=== PATIENT | female | born 1960 | race Caucasian/White ===

== ENCOUNTER → 2017-03-10 | Outpatient (CLI) | payer BC ==
--- NOTE | 2017-03-10 09:53 | MM ---
Reason for exam: screening (asymptomatic). Last mammogram was performed 1 year and 3 months ago. History: Patient is postmenopausal. Benign right US cyst aspiration ea add of the right breast, December 10, 2006. Benign right US cyst aspiration of the right breast, December 10, 2006. Took hormonal contraceptives for 6 years beginning at age 16. Physical Findings: A clinical breast exam by your physician is recommended on an annual basis and results should be correlated with mammographic findings. MG Screening Mammo w CAD Bilateral CC and MLO view(s) were taken. Prior study comparison: December 11, 2015, bilateral MG screening mammo w CAD. November 14, 2014, right breast MG work up mamm w CAD RT. The breast tissue is heterogeneously dense. This may lower the sensitivity of mammography. Finding: There are typically benign regional calcifications in both breasts. No significant changes in finding since December 11, 2015 and November 14, 2014. ASSESSMENT: Benign, BI-RAD 2 RECOMMENDATION: Routine screening mammogram of both breasts in 1 year.
== END | disposition home or self-care (01) ==
LOC: RADMAMWWP 07:09
PROVIDERS: ATTEND Obstetrics & Gynecology
DX: Z12.31 Encounter for screening mammogram for malignant neoplasm of breast (principal)

== ENCOUNTER → 2017-12-08 | Outpatient (CLI) | payer BC ==
[2017-12-08 07:49] LABS: Basophils % (A) 1 %; Eosinophils # (A) 0.1 k/uL (0-0.7); Eosinophils % (A) 2 %; HGB 13.3 gm/dL (11.4-16.0); Lymphocytes # (A) 1.4 k/uL (1.0-4.8); Lymphocytes % (A) 30 %; MCH 27.8 pg (25.0-35.0); MCHC 33.3 g/dL (31.0-37.0); MCV 83.5 fL (80.0-100.0); Mean Platelet Volume 7.2; Monocytes # (A) 0.4 k/uL (0-1.0); Monocytes % (A) 8 %; Neutrophils # (A) 2.5 k/uL (1.3-7.7); Neutrophils % (A) 55 %; Platelet Count 240 k/uL (150-450); RBC 4.79 m/uL (3.80-5.40); RDW 13.5 % (11.5-15.5); WBC 4.5 k/uL (3.8-10.6)
[2017-12-08 08:15] LABS: Albumin 4.3 g/dL (3.5-5.0); Calcium 9.8 mg/dL (8.4-10.2); Potassium 4.1 mmol/L (3.5-5.1); Total Bilirubin 0.4 mg/dL (0.2-1.3)
[2017-12-08 08:22] LABS: T4, Free (Free Thyroxine) 1.18 ng/dL (0.78-2.19)
[2017-12-08 16:14] LABS: Hemoglobin A1C 5.5 % (4.0-6.0)
== END | disposition home or self-care (01) ==
LOC: LABWHC1 07:27
PROVIDERS: ATTEND Internal Medicine Geriatric Medicine
DX: D64.9 Anemia, unspecified (principal); E78.00 Pure hypercholesterolemia, unspecified; R73.09 Other abnormal glucose; E78.01 Familial hypercholesterolemia; I49.1 Atrial premature depolarization
CPT/HCPCS: 36415; 80053; 80061; 83036; 83540; 83550; 83735; 84439; 84443; 85025

== ENCOUNTER → 2019-02-01 | Outpatient (CLI) | payer BC ==
--- NOTE | 2019-02-01 10:05 | BD ---
EXAMINATION TYPE: Axial Bone Density DATE OF EXAM: 02/01/2019 COMPARISON: 11/08/2010 CLINICAL HISTORY: osteoporosis Height: 5'5 4 Weight: 186 FRAX RISK QUESTIONS: Secondary Osteoporosis: RISK FACTORS HISTORY OF: Postmenopausal woman: y MEDICATIONS: Additional Medications: blood pressure Additional History: EXAM MEASUREMENTS: Bone mineral densitometry was performed using the [employer] System. Bone mineral density as measured about the Lumbar spine is: ----- L1-L4(G/cm2): 1.213 T Score Values are as follows: ----- L2: 0.2 ----- L3: 0.7 ----- L4: 0.2 ----- L1-L4: 0.3 Bone mineral density has: Decreased -12.2% since study of: 11/08/2010 Bone mineral density about the R hip (g/cm2): 0.807 Bone mineral density about the L hip (g/cm2): 0.890 T Score values are as follows: -----R Neck: -1.7 -----L Neck: -1.1 -----R Total: -0.6 -----L Total: -0.5 Bone mineral density has: Decreased -9.5% since study of: 11/08/2010 IMPRESSION: Osteopenia (T Score between -2.5 and -1). There is slightly increased risk of fracture and the patient may be considered for treatment. Re-Screen 2-5 years. NOTE: T-SCORE=SD OF THE YOUNG ADULT MEAN.
--- NOTE | 2019-02-01 14:02 | MM ---
Reason for exam: screening (asymptomatic). Last mammogram was performed 1 year and 11 months ago. History: Patient is postmenopausal. Benign right US cyst aspiration ea add of the right breast, December 10, 2006. Benign right US cyst aspiration of the right breast, December 10, 2006. Took hormonal contraceptives for 6 years beginning at age 16. Physical Findings: A clinical breast exam by your physician is recommended on an annual basis and results should be correlated with mammographic findings. MG Screening Mammo w CAD Bilateral CC and MLO view(s) were taken. Prior study comparison: March 10, 2017, bilateral MG screening mammo w CAD. December 11, 2015, bilateral MG screening mammo w CAD. The breast tissue is heterogeneously dense. This may lower the sensitivity of mammography. Benign appearing bilateral calcifications. No suspicious abnormality. No significant changes when compared with prior studies. ASSESSMENT: Benign, BI-RAD 2 RECOMMENDATION: Routine screening mammogram of both breasts in 1 year.
== END | disposition home or self-care (01) ==
LOC: RADMAMWWP 06:54
PROVIDERS: ATTEND Internal Medicine Geriatric Medicine
DX: Z12.31 Encounter for screening mammogram for malignant neoplasm of breast (principal); M85.80 Other specified disorders of bone density and structure, unspecified site
CPT/HCPCS: 77067; 77080

== ENCOUNTER 2019-02-07 08:06 | Day surgery (SDC) | payer BC ==
[2019-02-03 10:53] VITALS: BMI 29.8
[~2019-02-07 08:06] MED LIST: LACTATED RINGERS 1,000 ML IV SCH; LIDOCAINE 1% 20 ML VIAL (10MG/ML) FOR IV START INTRADERMA PRN
[2019-02-07 08:32] VITALS: TEMP 98.4
[2019-02-07] MEDS ORDERED: PROPOFOL 10 MG/ML 20 ML VIAL IV ONE (08:37)
[2019-02-07] MEDS ORDERED: LIDOCAINE 1% INJ 10MG/ML (20 ML MDV) ONE (08:37)
--- NOTE | 2019-02-07 08:42 | P.GSHP ---
History of Present Illness H&P Date: 02/07/19 Chief Complaint: Screening colonoscopy This is a 4-year-old female presents today for screening colonoscopy. Her last colonoscopy his prostate years ago. Past Medical History Past Medical History: Hypertension History of Any Multi-Drug Resistant Organisms: None Reported Past Surgical History: Hysterectomy, Tubal Ligation Additional Past Surgical History / Comment(s): COLONOSCOPY, HEMORROIDECTOMY Past Anesthesia/Blood Transfusion Reactions: Motion Sickness, Postoperative Nausea & Vomiting (PONV) Smoking Status: Never smoker - Past Family History Mother Family Medical History: No Reported History Medications and Allergies Home Medications Medication Instructions Recorded Confirmed Type Losartan/Hydrochlorothiazide 1 each PO DAILY 02/03/19 02/07/19 History [Losartan-Hctz 100-25 mg Tab] Travoprost [Travatan Z 0.004%] 1 drop BOTH EYES HS 02/03/19 02/07/19 History amLODIPine BESYLATE [Norvasc] 5 mg PO DAILY 02/03/19 02/07/19 History Allergies Allergy/AdvReac Type Severity Reaction Status Date / Time No Known Allergies Allergy Verified 02/07/19 08:29 Surgical - Exam Vital Signs Temp Pulse Resp BP Pulse Ox 98.4 F 91 18 149/81 96 02/07/19 08:31 02/07/19 08:31 02/07/19 08:31 02/07/19 08:31 02/07/19 08:31 - General well developed, well nourished, no distress - Eyes PERRL - ENT normal pinna - Neck no masses - Respiratory normal expansion - Cardiovascular Rhythm: regular - Abdomen Abdomen: soft, non tender Assessment and Plan Assessment: We'll perform screening colonoscopy.
--- NOTE | 2019-02-07 08:56 | P.OP ---
Date of Procedure: 02/07/19 Preoperative Diagnosis: Screening colonoscopy Postoperative Diagnosis: Mild diverticulosis Procedure(s) Performed: Colonoscopy Anesthesia: MAC Surgeon: Rafa Iniguez Pathology: none sent Condition: stable Disposition: PACU Description of Procedure: The patient's placed on the endoscopy table in the lateral position. She received IV sedation. Digital rectal exam was performed which revealed no abnormalities. The flexible colonoscope was then placed patient anus and passed throughout the entire colon. The ileocecal valve was visualized. The cecum, ascending and transverse colon appeared normal. In the descending; there is mild diverticular changes. Scope was then brought back the rectum and this appeared normal. Scope was withdrawn for patient.
[2019-02-07 09:41] VITALS: BP 137/85; PULSE 71; RESP 17
== END 2019-02-07 09:41 | disposition home or self-care (01) ==
LOC: ORWHC2ENDO 08:06
PROVIDERS: ATTEND Surgery
DX: Z12.11 Encounter for screening for malignant neoplasm of colon (principal); K57.30 Diverticulosis of large intestine without perforation or abscess without bleeding; I10 Essential (primary) hypertension; Z90.710 Acquired absence of both cervix and uterus; Z98.51 Tubal ligation status; Z79.899 Other long term (current) drug therapy
CPT/HCPCS: J2001; J2704; G0121

== ENCOUNTER → 2020-07-23 | Outpatient (CLI) | payer BC ==
--- NOTE | 2020-07-30 10:26 | MM ---
Reason for exam: screening (asymptomatic). Last mammogram was performed 1 year and 6 months ago. History: Patient is postmenopausal. Benign right US cyst aspiration ea add of the right breast, December 10, 2006. Benign right US cyst aspiration of the right breast, December 10, 2006. Took hormonal contraceptives for 6 years beginning at age 16. Physical Findings: A clinical breast exam by your physician is recommended on an annual basis and results should be correlated with mammographic findings. MG 3D Screening Mammo W/Cad Bilateral CC and MLO view(s) were taken. Prior study comparison: February 01, 2019, bilateral MG screening mammo w CAD. March 10, 2017, bilateral MG screening mammo w CAD. The breast tissue is heterogeneously dense. This may lower the sensitivity of mammography. Regional punctate calcifications are unchanged. No significant changes when compared with prior studies. ASSESSMENT: Benign, BI-RAD 2 RECOMMENDATION: Routine screening mammogram of both breasts in 1 year. Patient should continue monthly self breast exams. A negative report should not preclude additional follow up of suspicious palpable abnormalities.
== END | disposition home or self-care (01) ==
LOC: RADMAMWWP 16:07
PROVIDERS: ATTEND Obstetrics & Gynecology
DX: Z12.31 Encounter for screening mammogram for malignant neoplasm of breast (principal)
CPT/HCPCS: 77063; 77067

== ENCOUNTER → 2021-05-29 | Outpatient (CLI) | payer BC ==
[2021-05-29 09:07] LABS: HCT 41.4 % (34.0-46.0); HGB 13.9 gm/dL (11.4-16.0); MCH 30.3 pg (25.0-35.0); MCHC 33.6 g/dL (31.0-37.0); MCV 90.2 fL (80.0-100.0); Mean Platelet Volume 7.3; Platelet Count 333 k/uL (150-450); RBC 4.59 m/uL (3.80-5.40); RDW 13.3 % (11.5-15.5); WBC 6.6 k/uL (3.8-10.6)
[2021-05-29 09:15] LABS: Calcium 9.9 mg/dL (8.4-10.2); Potassium 3.4 mmol/L (3.5-5.1)
[2021-05-29 09:16] LABS: Partial Thromboplastin Time 23.9 sec (22.0-30.0); Prothrombin Time 10.3 sec (9.0-12.0)
[2021-05-29 09:24] LABS: Appearance,Urine Clear (Clear); Bacteria,Urine Rare /hpf; Bilirubin,Urine Negative (Negative); Blood,Urine Negative (Negative); Color,Urine Yellow; Glucose,Urine (UA) Negative (Negative); Hyaline Casts,Urine 3 /lpf (0-2); Ketones,Urine Negative (Negative); Leukocyte Esterase,Urine Small (Negative); Mucus,Urine Rare /hpf; Nitrite,Urine Positive (Negative); Protein,Urine Negative (Negative); RBC,Urine <1 /hpf (0-5); Specific Gravity,Urine 1.015 (1.001-1.035); Squamous Epithelial Cell,Urine <1 /hpf (0-4); Urobilinogen,Urine <2.0 mg/dL (<2.0); WBC,Urine 7 /hpf (0-5)
--- NOTE | 2021-05-29 09:56 | XR ---
EXAMINATION TYPE: XR chest 2V DATE OF EXAM: 05/29/2021 COMPARISON: NONE HISTORY: Shortness of breath TECHNIQUE: Frontal and lateral views of the chest are obtained. FINDINGS: Scattered senescent parenchymal changes noted. No evidence for infiltrate. No evidence for atelectasis. Heart size is stable. Mediastinal structures are stable and grossly unremarkable. No evidence for hilar prominence. Degenerative changes dorsal spine. IMPRESSION: 1. No evidence for acute pulmonary disease.
== END | disposition home or self-care (01) ==
LOC: LABPAT 08:08
PROVIDERS: ATTEND Orthopaedic Surgery Orthopaedic Surgery of the Spine
DX: Z01.812 Encounter for preprocedural laboratory examination (principal); R06.02 Shortness of breath
CPT/HCPCS: 36415; 71046; 80048; 81001; 85027; 85610; 85730; 87070

== ENCOUNTER 2021-06-05 12:26 | Inpatient (IN) | payer BC ==
[2021-05-30 09:33] VITALS: BMI 28.8
[~2021-06-05 12:26] MED LIST changes: -LACTATED RINGERS 1,000 ML IV SCH; +LIDOCAINE 1% (10MG/ML) FOR IV START INTRADERMA PRN; -LIDOCAINE 1% 20 ML VIAL (10MG/ML) FOR IV START INTRADERMA PRN; +ONDANSETRON 4 MG/2 ML VIAL IVP ONE; +ceFAZolin 1,000 MG in SODIUM CHLORIDE 0.9% IRRIGATIO 1,000 ML IRRIGATION PRN
[2021-06-05] MEDS ORDERED: LACTATED RINGERS 1,000 ML IV ONE ×2 (13:41→16:24)
[2021-06-05] MEDS ORDERED: LIDOCAINE 1% INJ 10MG/ML (20 ML MDV) ONE (14:54)
[2021-06-05] MEDS ORDERED: HYDROmorphone (PF) 1 MG/ML ONE (14:54)
[2021-06-05] MEDS ORDERED: HEPARIN SODIUM,PORCINE 10,000 UNIT/ML 1 ML VIAL ONE (14:54)
[2021-06-05] MEDS ORDERED: SUCCINYLCHOLINE CHLORIDE 100 MG/5 ML SYR IV ONE (14:54)
[2021-06-05] MEDS ORDERED: NEOSTIGMINE 1 MG/ML 10 ML VIAL ONE (14:54)
[2021-06-05] MEDS ORDERED: ROCURONIUM 10 MG/ML (5 ML VIAL) IV ONE (14:54)
[2021-06-05] MEDS ORDERED: GLYCOPYRROLATE 0.2 MG/ML 2 ML VIAL ONE (14:54)
[2021-06-05] MEDS ORDERED: fentaNYL (PF) 50 MCG/ML 2 ML AMP ONE (14:54)
[2021-06-05] MEDS ORDERED: PROPOFOL 10 MG/ML 20 ML VIAL IV ONE (14:54)
[2021-06-05] MEDS ORDERED: PHENYLEPHRINE-0.9% NACL SYG 1,000 MCG/10 ML SYRINGE ONE (14:54)
[2021-06-05] MEDS ORDERED: SODIUM CHLORIDE 0.9% IRRIG 1,000 ML BTL IRRIGATION ONE (14:54)
[2021-06-05] MEDS ORDERED: MIDAZOLAM 2 MG/2 ML VIAL ONE (14:54)
[2021-06-05] MEDS ORDERED: GELATIN SPONGE,ABSORB (LARGE) 1 EACH SPONGE TOPICAL ONE (15:43)
[2021-06-05] MEDS ORDERED: LIDOCAINE 0.5%-EPI 1:200,000 50 ML VIAL SQ ONE (15:43)
[2021-06-05] MEDS ORDERED: THROMBIN (BOVINE) 5,000 UNIT VIAL TOPICAL ONE (19:14)
[2021-06-05] MEDS ORDERED: diazePAM 5 MG TAB PO PRN (20:00)
[2021-06-05] MEDS ORDERED: HYDROmorphone 1 MG/ML 1 ML SYRINGE IVP PRN (20:00)
[2021-06-05] MEDS ORDERED: BENZOCAINE/MENTHOL LOZENG 1 EACH LOZENGE MUCOUS MEM PRN (20:00)
[2021-06-05] MEDS ORDERED: HYDROmorphone 0.5 MG/0.5 ML SYRINGE IVP PRN (20:00)
[2021-06-05] MEDS ORDERED: CYCLOBENZAPRINE 10 MG TAB PO PRN (20:01)
[2021-06-05] MEDS ORDERED: MAG HYDROX/AL HYDROX/SIMETH 30 ML CUP PO PRN (20:01)
[2021-06-05] MEDS ORDERED: SENNOSIDES-DOCUSATE SODIUM 1 EACH TAB PO PRN (20:01)
[2021-06-05] MEDS ORDERED: ONDANSETRON 4 MG/2 ML VIAL IVP PRN (20:01)
[2021-06-05] MEDS: HYDROmorphone 0.5 MG/0.5 ML SYRINGE IVP PRN ×2 (20:09→20:37)
--- NOTE | 2021-06-05 20:09 | P.OP ---
Date of Procedure: 06/05/21 Preoperative Diagnosis: Severe spinal stenosis L4 5 L5-S1, spondylolisthesis L4 5 L5-S1, low back pain, lower extremity radiculopathy, lower extremity weakness, spinal stenosis, degenerative disc disease Postoperative Diagnosis: Same Anesthesia: GETA Pathology: none sent Condition: stable Disposition: PACU Description of Procedure: DESCRIPTION OF PROCEDURE(S): BRIEF OPERATIVE NOTE Preoperative Diagnosis: Severe spinal stenosis L4 5 L5-S1, spondylolisthesis L4 5 L5-S1, low back pain, lower extremity radiculopathy, lower extremity weakness, spinal stenosis, degenerative disc disease Postoperative Diagnosis: Same Procedure: Laminectomy and decompression L4 5 L5-S1, with increased difficulties during this case increase time due to the severity of the listhesis and stenosis Computer CT navigation aided Minimally invasive Posterior lateral decompression and facet fusion L4 5 L5-S1 Minimally invasive Transforaminal lumbar interbody fusion for a 360 fusion L4 5 L5-S1 Discectomy for decompression L4 5 L5-S1 Placement of interbody graft L4 5 L5-S1 Use of computer navigation for fusionL4 5 L5-S1 Local autogenous bone grafting Aspiration of bone marrow from the vertebral body pedicleAt L4 on the right Use of bone graft extenders Surgeon: Dr. Cloud Cane Packer: Dany KLEIN who is present throughout the entire the case persistence during positioning, dissection, exposure, visualization, and all crucial elements of the case as well as closure. Anesthesia: General anesthesia per Dr. Liu Estimated blood loss: Approximately 400 mL Complications: None apparent Components implanted: K2M minimally invasive [place] pedicle screw system withscrews measuring 6.5 mm in diameter to rods one [place] interbody cage with 10 mL of osteo amp bio4 bone graft substitute and 30 mL of the BX bone boat fibers to supplement the local autogenous bone graft and bone marrow aspirate Disposition: To recovery room in good stable condition. OPERATIVE INDICATIONS The patient has had severe issues at their lower extremity in her lower back over the past several years with significant worsening over the past several months. Over the past few months the patient had increasing pain at their back and their lower extremities. The patient is having severe radicular symptoms at their lower extremity with weakness. The patient is having significant pain in their back. They are unable to obtain any comfort. We did aggressive conservative treatment with medications therapy and interventional pain management however thery were not having any relief. The patient also showed evidence of a listhesis with some dynamic instability, as well as severe stenosis at L4 5 and L5-S1. The patient has been through conservative treatment. We discussed various treatment options including surgery, and the patient wishes to proceed with surgery We discussed the risk, patient's alternatives and benefits of surgery including but not limited to, risk of bleeding risk of infection, risk of need for further surgery, risk of decreased, loss of motion, muscle function, malunion nonunion, hardware failure, nerve damage, paralysis, heart attack, blindness and . They understood issues with the current pandemic and the possibility of exposure. OPERATIVE SUMMARY After discussing all the risks, patient alternatives and benefits at length, the patient elected to proceed with surgical intervention, signed informed consent, and presented for their procedure. The patient was seen and examined in the preoperative holding area and the surgical site was marked. The patient was given antibiotics and brought to the operating room. The patient was sedated and intubated by anesthesia in standard fashion. The patient was positioned on to the operating room table in a prone position on the appropriate frame which was well-padded and well molded. We were careful to pad any bony prominences and pressure points. We were careful to maintain the patient's cervical spine and good neutral alignment and position throughout. The patient was prepped and draped in a normal standard fashion. An appropriate timeout and keystone protocol performed. We were able to proceed with the surgery. The local wound area was infiltrated with local anesthetic. Over the right iliac crest I was able to make small stab incisions and establish a guidepin screw fixation to the iliac crest 2. I was able place the computer referencing device over the guidepins to establish an appropriate reference point for the Ziem CT navigation. We then were able to place patient in an appropriate drape and do a navigation spin for visualization and 3-D reconstruction of the lumbar spine. I was able utilize C-arm guidance and navigation to establish appropriate position over the pedicles bilaterally at the appropriate levelsof L4 5 and S1 . With the appropriate levels confirmed was able to make small incisions over the appropriate pedicle sites bilaterally. Utilizing the computer navigation device I was able to establish bony landmarks at the right iliac crest for a bony reference point for the navigation device. I was able to establish a Jamshidi needle over the lateral aspect of the pedicle and advanced the trocar into the pedicle being careful not to breech superiorly inferiorly medially or laterally using computer navigation device. Position was confirmed regularly with AP and lateral images on C-arm and with the computer navigation device at the appropriate levels bilaterally. I was able to establish the trocar into the pedicle appropriately into the posterior aspect of the vertebral body bilaterally at the appropriate levels. This was done at each of the pedicle positions and each of the vertebrae. At the superior vertebraeof L4 on the right I was able to take approximately 25 mL of bone aspiration for use later in the case to supplement the allograft and autograft bone. I was able place the guidewire into the trocar and into the vertebral body appropriately under C-arm guidance. Dissection was taken down over the wire to the appropriate starting position for the screw placed. The appropriate length screw was chosen, threaded over the guidewire and screwed appropriately into the pedicle and vertebral body under C-arm guidance in excellent alignment and position with good bony purchase. This is done at each of the screw sites at the appropriate levels At L4 5 and S1.. With the screws intact I extended the incision to connect the screw hole sites on the most symptomatic side On the left. I dissected down to establish access over the pars and lamina to the base of the spinous process. I was able to expose the facet joint. The capsule the facet was taken down and showed some facet arthrosis at the joint. I was able to use a combination of curettes and Kerrison rongeurs and a high-speed drill to take down the facet joint and do a facetectomy. I was able get excellent foraminal decompression and central decompression with undermining across midline to perform a laminectomy centrally and contralaterally I was able get good central decompression. The ligamentum flavum was taken down to further decompress centrally and at bilateral neural foramen. The decompression and laminectomy at both of the levels particularly at L4 5 was extremely difficult due to the severe stenosis as well as her listhesis. It took extra time exposure and care during the procedure to perform laminectomy at each of the levels for appropriate decompression. I was able to expose the disc space and visualize the traversing nerve root. Note was made of some disc protrusion and disc herniation that was abutting the traversing nerve root at the level causing further compression of the nerve root. I was able to establish a annulotomy at the appropriate level protecting soft tissue and neural structures. Note was made of some disc desiccation at the disc. I performed a complete discectomy with accommodation of curettes and rasps and scrapers. I was able get good endplate preparation at the disc space. I sized for the appropriate size interbody spacer protecting the soft tissue and neural structures. The wound was copiously irrigated and suctioned dry. There is no evidence of any dural tear or leak. I was able to pack the disc space with local autogenous bone graft as well as a small amount of bone graft which was also placed into the interbody cage itself. Protecting the soft tissue structures and neural structures I was able place the interbody cage in good alignment and good position with good fit and fill at the interbody space. Position was confirmed with C-arm guidance.This was done first at L5-S1 and L4 5 Good hemostasis maintained. There is no evidence of any dural tear or leak. The wound was irrigated and suctioned dry. With the hardware intact, intraoperative C-arm imaging was again taken which showed good alignment and position of the hardware at the appropriate levels At L4 5 and S1. We were then able to measure, contour and place the rods and appropriate hardware bilaterally. I was able to place capcrews, tighten them down, and torque them with the torque screwdriver appropriately. With this intact I was able to place the local autogenous bone graft with additional bone graft enhancer as necessary into the posterior lateral gutters over the decorticated transverse processes and facet joints on the contralateral side. The remainder of the bone graft was placed over the facet joint on the contralateral side after taking down the facet joint capsule. With the bone graft intact, a stable construct, and good decompression at the appropriate levels, we were able to proceed with closure. Good hemostasis was maintained. There is no evidence of dural tear or leak. The fascia was closed for a watertight closure. he subcuticular tissue was closed with absorbable suture. The wound was cleaned and dried and dressed with the appropriate dressing. The drapes were broken down. The patient was gently rolled back onto their hospital bed being careful to maintain their cervical spine and good neutral alignment and position. They were woken up by anesthesia, extubated, and brought to the recovery room in good stable condition. The patient will be admitted to the hospital for appropriate postoperative care, medical management and monitoring. We will continue to follow them closely ab out the postoperative course.
[2021-06-05] MEDS: LATANOPROST 0.005% OPHTH DROPS 2.5 ML BTL BOTH EYES SCH (22:27)
[2021-06-05] MEDS ORDERED: DILTIAZEM 125 MG in SODIUM CHLORIDE 0.9% 100 ML IV SCH (22:30)
[2021-06-05 22:53] LABS: Glucose,Whole Blood 157 mg/dL (75-99)
[2021-06-06] MEDS: LACTATED RINGERS 1,000 ML IV SCH ×2 (00:15→16:44)
[2021-06-06] MEDS: METOPROLOL TARTRATE 25 MG TAB PO SCH ×3 (01:04→19:33)
[2021-06-06] MEDS: HYDROcodone/APAP 5-325MG 1 EACH TAB PO PRN ×3 (01:04→23:10)
[2021-06-06] MEDS: SODIUM CHLORIDE 0.9% 1,000 ML IV SCH ×3 (01:06→23:12)
[2021-06-06 01:25] LABS: Appearance,Urine Clear (Clear); Bilirubin,Urine Negative (Negative); Blood,Urine Negative (Negative); Color,Urine Yellow; Glucose,Urine (UA) Negative (Negative); Ketones,Urine Negative (Negative); Leukocyte Esterase,Urine Negative (Negative); Nitrite,Urine Negative (Negative); Protein,Urine Negative (Negative); Specific Gravity,Urine 1.016 (1.001-1.035); Urobilinogen,Urine <2.0 mg/dL (<2.0)
--- NOTE | 2021-06-06 07:26 | FL ---
EXAMINATION TYPE: FL guidance operating room, XR lumbar spine 2 or 3V DATE OF EXAM: 06/05/2021 CLINICAL HISTORY: Low back pain. TECHNIQUE: Fluoroscopy. Intraoperative 2 views lumbar spine. COMPARISON: None. FINDINGS: Fluoroscopic guidance was provided during lumbar fusion procedure performed by Dr. Cloud. A total of 17 seconds of fluoroscopic time was utilized during the procedure and 7 spot images was a cquired. Intraoperative images obtained show access and placement of bilateral posterior interpedicular rods a nd screws along with metallic disc material at L4-S1 levels. IMPRESSION: As Above.
[2021-06-06 07:44] LABS: Basophils % (A) 0 %; Eosinophils # (A) 0.1 k/uL (0-0.7); Eosinophils % (A) 1 %; HGB 11.5 gm/dL (11.4-16.0); Lymphocytes # (A) 0.8 k/uL (1.0-4.8); Lymphocytes % (A) 9 %; MCH 31.1 pg (25.0-35.0); MCHC 34.9 g/dL (31.0-37.0); MCV 89.1 fL (80.0-100.0); Mean Platelet Volume 7.1; Monocytes # (A) 0.6 k/uL (0-1.0); Monocytes % (A) 7 %; Neutrophils % (A) 81 %; Platelet Count 233 k/uL (150-450); RDW 13.2 % (11.5-15.5); WBC 8.7 k/uL (3.8-10.6)
[2021-06-06 08:08] LABS: ALT 13 U/L (4-34); AST 33 U/L (14-36); African American GFR (CKD) 77 (>60 ml/min/1.73 sqM); Albumin/Globulin Ratio 1.4; Alkaline Phosphatase 55 U/L (38-126); Anion Gap 4 mmol/L; Blood Urea Nitrogen 21 mg/dL (7-17); Calcium 8.7 mg/dL (8.4-10.2); Carbon Dioxide 27 mmol/L (22-30); Chloride 103 mmol/L (98-107); Globulin 2.1 g/dL; Glucose 108 mg/dL (74-99); Magnesium 2.1 mg/dL (1.6-2.3); Non-African American GFR(CKD) 67 (>60 ml/min/1.73 sqM); Potassium 4.2 mmol/L (3.5-5.1); Sodium 134 mmol/L (137-145); Total Bilirubin 0.5 mg/dL (0.2-1.3); Total Protein 5.1 g/dL (6.3-8.2)
[2021-06-06 08:24] LABS: T4, Free (Free Thyroxine) 1.39 ng/dL (0.78-2.19)
[2021-06-06] MEDS: hydroCHLOROthiazide 25 MG TAB PO SCH (08:57)
[2021-06-06] MEDS: CHOLECALCIFEROL 25 MCG (1000 IU) TABLET PO SCH (08:57)
[2021-06-06] MEDS: MULTIVITAMINS, THERA 1 EACH TAB PO SCH (08:57)
[2021-06-06] MEDS ORDERED: amLODIPine 5 MG TAB PO SCH (09:00)
[2021-06-06] MEDS ORDERED: POTASSIUM PO SCH (09:00)
[2021-06-06] MEDS ORDERED: MAGNESIUM PO SCH (09:00)
--- NOTE | 2021-06-06 12:17 | P.CRDCN ---
History of Present Illness Consult date: 06/06/21 History of present illness: HISTORY OF PRESENT ILLNESS: This is a 60-year-old female with a past medical history significant for hypertension. 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 We have been asked to see the patient in consultation for new-onset atrial fibrillation with RVR. Patient examined at the bedside. Patient underwent back surgery yesterday with Dr. Cloud. Postoperatively the patient went into A. fib with RVR. The patient states she was pretty groggy yesterday and does not remember much of the events that happened yesterday. She currently denies chest pain or pressure. She denies shortness of breath. She denies any palpitations. The patient was started on a Cardizem drip and converted to sinus mechanism within a couple hours. She remains in sinus mechanism this morning. Her Cardizem drip has been discontinued. EKG reveals atrial fibrillation with RVR. Telemetry reveals sinus mechanism Laboratory data: WBC 8.7. Hemoglobin 11.5. Platelet count 233. Sodium 134. Potassium 4.2. BUN 21. Creatinine 0.92. Magnesium 2.1. Current home cardiac medications include valsartan 160 mg daily, hydrochlorothiazide 25 mg daily, and Norvasc 5 mg daily REVIEW OF SYSTEMS: At the time of my exam: CONSTITUTIONAL: Denies fever or chills. HEENT: Denies blurred vision, vision changes, or eye pain. Denies hemoptysis CARDIOVASCULAR: Denies chest pain. Denies orthopnea. Denies PND. Denies palpitations RESPIRATORY: Denies shortness of breath. GASTROINTESTINAL: Denies abdominal pain. Denies nausea or vomiting. HEMATOLOGIC: Denies bleeding disorders. GENITOURINARY: Denies any blood in urine. SKIN: Denies pruitis. Denies rash. PHYSICAL EXAM: VITAL SIGNS: Reviewed. GENERAL: Well-developed in no acute distress. HEENT: Head is normocephalic. Pupils are equal, round. Sclerae anicteric. Mucous membranes of the mouth are moist. Neck supple. No JVD or thyromegaly LUNGS: Respirations even and unlabored. Lungs essentially clear to auscultation bilaterally. HEART: Regular rate and rhythm. S1 and S2 heard. ABDOMEN: Soft. Nondistended. Nontender. EXTREMITIES: Normal range of motion. No clubbing or cyanosis. Peripheral pulses intact. No lower extremity edema NEUROLOGIC: Awake and alert. Oriented x 3. ASSESSMENT: New-onset paroxysmal atrial fibrillation with RVR Chronic back pain with severe spinal stenosis, status post decompression and fusion Hypertension PLAN: Obtain 2-D echo to assess cardiac structure and function Check TSH Continue metoprolol 25mg BID Continue telemetry monitoring No anticoagulation recommended due to recent surgery and brief isolated episode of atrial fibrillation Further recommendations pending patient course Nurse practitioner note has been reviewed by physician. Signing provider agrees with the documented findings, assessment, and plan of care. Past Medical History Past Medical History: Hypertension, Osteoarthritis (OA) Additional Past Medical History / Comment(s): DDD, BULDGING DISCS, BACK PAIN- USING WALKER., TINNITUS, OCCULAR HTN History of Any Multi-Drug Resistant Organisms: None Reported Past Surgical History: Hysterectomy, Tubal Ligation Additional Past Surgical History / Comment(s): FOOT SURGERY (DR CANTU), HEMORRHOIDECTOMY, COLONOSCOPY Past Anesthesia/Blood Transfusion Reactions: Previous Problems w/ Anesthesia, Motion Sickness, Postoperative Nausea & Vomiting (PONV) Additional Past Anesthesia/Blood Transfusion Reaction / Comment(s): MOTHER = ponv Past Psychological History: No Psychological Hx Reported Smoking Status: Never smoker Past Alcohol Use History: None Reported Past Drug Use History: None Reported - Past Family History Brother(s) Additional Family Medical History / Comment(s): KIDNEY REMOVED-UNSURE REASON Mother Family Medical History: AICD/Pacemaker, Hypertension Medications and Allergies Home Medications Medication Instructions Recorded Confirmed Type amLODIPine BESYLATE [Norvasc] 5 mg PO DAILY 02/03/19 05/30/21 History Cholecalciferol [Vitamin D3 (25 50 mcg PO DAILY 05/30/21 05/30/21 History Mcg = 1000 Iu)] Cyclobenzaprine [Flexeril] 10 mg PO Q8HR 05/30/21 05/30/21 History HYDROcodone/APAP 5-325MG [[place] 1 tab PO TID PRN 05/30/21 05/30/21 History 5-325] Ibuprofen [Motrin] 800 mg PO Q8H PRN 05/30/21 05/30/21 History Latanoprost/Pf [Latanoprost 0.005% 1 drop BOTH EYES HS 05/30/21 06/05/21 History Eye Drop] Magnesium/Potassium 1 tab PO DAILY 05/30/21 06/05/21 History Mv-Min/Folic/Vit K/[id number] 1 each PO DAILY 05/30/21 05/30/21 History [Alive Women's 50 Plus Tablet] Osteosheath Calcium Supplement 1 tab PO DAILY 05/30/21 History Valsartan 160 mg PO DAILY 05/30/21 05/30/21 History Vitamin B Complex 1 each PO DAILY 05/30/21 05/30/21 History hydroCHLOROthiazide 25 mg PO DAILY 05/30/21 05/30/21 History Allergies Allergy/AdvReac Type Severity Reaction Status Date / Time BANDAIDES AdvReac Unknown Rash/Hives Uncoded 05/30/21 08:52 Physical Exam Vitals: Vital Signs Temp Pulse Pulse Resp BP BP Pulse Ox 06/05/21 23:12 97.8 F 99 16 104/68 99 06/05/21 22:27 128 H 06/05/21 22:25 112 H 117/69 98 06/05/21 22:05 99 110/57 98 06/05/21 22:00 128 H 06/05/21 21:50 130 H 110/72 99 06/05/21 21:35 97.5 F L 125 H 17 113/69 98 06/05/21 20:57 85 16 126/61 100 06/05/21 20:42 94 18 135/69 100 06/05/21 20:27 94 16 137/75 100 06/05/21 20:12 80 16 122/58 100 06/05/21 19:57 96.9 F L 87 16 119/67 98 06/05/21 13:30 98.1 F 110 H 18 113/66 97 Intake and Output 06/05/21 06/06/21 06/06/21 22:59 06:59 14:59 Intake Total 1401.5 Output Total 780 510 Balance 621.5 -510 Intake: IV 1401.5 Output: Urine 380 510 Estimated Blood Loss 400 Other: Voiding Method Indwelling Catheter Indwelling Catheter Weight 81 kg Results 06/06/21 06:48 06/06/21 06:48 Cardiac Enzymes 06/06/21 Range/Units 06:48 AST 33 (14-36) U/L CBC 06/06/21 Range/Units 06:48 WBC 8.7 (3.8-10.6) k/uL RBC 3.70 L (3.80-5.40) m/uL Hgb 11.5 (11.4-16.0) gm/dL Hct 33.0 L (34.0-46.0) % Plt Count 233 (150-450) k/uL Comprehensive Metabolic Panel 06/05/21 06/06/21 Range/Units 13:39 06:48 Sodium 134 L (137-145) mmol/L Potassium 4.4 4.2 (3.5-5.1) mmol/L Chloride 103 (98-107) mmol/L Carbon Dioxide 27 (22-30) mmol/L BUN 21 H (7-17) mg/dL Creatinine 0.92 (0.52-1.04) mg/dL Glucose 108 H (74-99) mg/dL Calcium 8.7 (8.4-10.2) mg/dL AST 33 (14-36) U/L ALT 13 (4-34) U/L Alkaline Phosphatase 55 (38-126) U/L Total Protein 5.1 L (6.3-8.2) g/dL Albumin 3.0 L (3.5-5.0) g/dL Current Medications Generic Name Dose Route Start Last Admin Trade Name Freq PRN Reason Stop Dose Admin Hydrocodone Bitart/Acetaminophen 1 each 06/05/21 20:00 06/06/21 01:04 Hydrocodone/Apap 5-325mg 1 Each Tab PO 07/05/21 20:01 1 each Q4HR PRN Administration Pain Al Hydroxide/Mg Hydroxide 30 ml 06/05/21 20:01 Mag Hydrox/Al Hydrox/Simeth 30 Ml Cup PO 07/05/21 20:02 Q4HR PRN Indigestion Benzocaine/Menthol 1 each 06/05/21 20:00 Benzocaine/Menthol Lozeng 1 Each Lozenge MUCOUS MEM 07/05/21 20:01 Q4HR PRN Sore Throat Cholecalciferol 50 mcg 06/06/21 09:00 Cholecalciferol 25 Mcg (1000 Iu) Tablet PO 07/06/21 09:01 DAILY CADEN Cyclobenzaprine HCl 10 mg 06/05/21 20:01 Cyclobenzaprine 10 Mg Tab PO 07/05/21 20:02 TID PRN Muscle Spasm Diazepam 5 mg 06/05/21 20:00 Diazepam 5 Mg Tab PO 07/05/21 20:01 QID PRN Anxiety Hydrochlorothiazide 25 mg 06/06/21 09:00 Hydrochlorothiazide 25 Mg Tab PO 07/06/21 09:01 DAILY CADEN Hydromorphone HCl 0.5 mg 06/05/21 20:00 Hydromorphone 0.5 Mg/0.5 Ml Syringe IVP 07/05/21 20:01 Q4HR PRN Pain Hydromorphone HCl 1 mg 06/05/21 20:00 Hydromorphone 1 Mg/Ml 1 Ml Syringe IVP 07/05/21 20:01 Q4HR PRN Pain Lactated Ringer's 1,000 mls @ 20 mls/hr 06/05/21 06:42 06/06/21 00:15 Lactated Ringers IV 07/05/21 06:43 Not Given .Q24H CADEN Sodium Chloride 1,000 mls @ 75 mls/hr 06/05/21 20:00 06/06/21 01:06 Saline 0.9% IV 07/05/21 20:01 75 mls/hr .[id number] CADEN Administration Cefazolin Sodium 2 gm/ Sodium 50 mls @ 100 mls/hr 06/06/21 00:00 06/06/21 01:05 Chloride IVPB 06/06/21 08:29 100 mls/hr Q8HR CADEN Administration Latanoprost 1 drops 06/05/21 21:00 06/05/21 22:27 Latanoprost 0.005% Ophth Drops 2.5 Ml Btl BOTH EYES 07/05/21 21:01 1 drops HS CADEN Administration Lidocaine HCl 0.1 ml 06/05/21 06:42 06/05/21 13:42 Lidocaine 1% (10mg/Ml) For Iv Start INTRADERMA 07/05/21 06:43 0.1 ml PER PROTOCOL PRN Administration IV Start Metoprolol Tartrate 25 mg 06/06/21 00:15 06/06/21 01:04 Metoprolol Tartrate 25 Mg Tab PO 25 mg BID CADEN Administration Multivitamins 1 each 06/06/21 09:00 Multivitamins, Thera 1 Each Tab PO 07/06/21 09:01 DAILY CADEN Ondansetron HCl 4 mg 06/05/21 20:01 Ondansetron 4 Mg/2 Ml Vial IVP 07/05/21 20:02 Q8HR PRN Nausea And Vomiting Senna/Docusate Sodium 2 each 06/05/21 20:01 Sennosides-Docusate Sodium 1 Each Tab PO 07/05/21 20:02 DAILY PRN Constipation Intake and Output 06/05/21 06/06/21 06/06/21 22:59 06:59 14:59 Intake Total 1401.5 Output Total 780 510 Balance 621.5 -510 Intake: IV 1401.5 Output: Urine 380 510 Estimated Blood Loss 400 Other: Voiding Method Indwelling Catheter Indwelling Catheter Weight 81 kg 06/06/21 06:48 06/06/21 06:48
--- NOTE | 2021-06-06 12:45 | P.CONS ---
History of Present Illness - Reason for Consult Consult date: 06/06/21 Medical management - History of Present Illness HISTORY OF PRESENT ILLNESS This is a 60-year-old female patient of Dr. Antunez with past medical history of hypertension, osteoarthritis, degenerative disc disease, tinnitus. Patient has been brought into the hospital on the care of Dr. Cluod status post laminectomy and decompression L4-5, L5-S1 secondary to severe spinal stenosis, spondylolisthesis, lower extremity radiculopathy and lower extremity weakness. Last evening, patient had intermittent rapid heart rate and reported to be in atrial fibrillation, transferred to the cardiac stepdown unit, started Lopressor 25 mg twice daily and amlodipine was discontinued, consult with cardiology nam zapien At the time of evaluation, patient is in a sinus rhythm and apparently converted when she arrived to the cardiac stepdown unit. Patient denies having any chest pain, shortness of breath. No nausea or vomiting. REVIEW OF SYSTEMS Constitutional: No fever, no chills, no night sweats. No weight change. No weakness, fatigue or lethargy. No daytime sleepiness. EENT: No headache. No blurred vision or double vision, no loss of vision. No loss of Hearing, no ringing in the ears, no dizziness. No nasal drainage or congestion. No epistaxis. No sore throat. Lungs: No shortness of breath, cough, no sputum production. No wheezing. Cardiovascular: No chest pain, no lower extremity edema. No palpitations. No paroxysmal nocturnal dyspnea. No orthopnea. No lightheadedness or dizziness. No syncopal episodes. Abdominal: No abdominal pain. No nausea, vomiting. No diarrhea. No constipation. No bloody or tarry stools.. No loss of appetite. Genitourinary: No dysuria, increased frequency, urgency. No urinary retention. Musculoskeletal: No myalgias. No muscle weakness, no gait dysfunction, no frequent falls. Reports back pain. No neck pain. Integumentary: No wounds, no lesions. No rash or pruritus. No unusual bruising. No change in hair or nails. Neurologic: No aphasia. No facial droop. No change in mentation. No head injury. No headache. No paralysis. No paresthesia. Psychiatric: No depression. No anxiety. No mood swings. Endocrine: No abnormal blood sugars. No weight change. SOCIAL HISTORY Patient is a lifelong nonsmoker, no alcohol use, marijuana use or illicit drug use. She is and lives at home with her . FAMILY HISTORY Mother at age 82 from a brain hemorrhage. Father at age 87 from old age. Patient has 2 brothers and one brother has history of atrial fibrillation status post cardiac ablation. Patient has a total of 4 sisters and one sisters had atrial fibrillation with cardiac ablation. Patient has 2 children with no major medical problems. PHYSICAL EXAMINATION Gen: This is a 60-year-old female. Patient is resting in recliner and appears to be comfortable and in no acute distress. HEENT: Head is atraumatic, normocephalic. Pupils equal, round. Sclerae is anicteric. NECK: Supple. No JVD. No lymphadenopathy. No thyromegaly. LUNGS: Clear to auscultation. No wheezes or rhonchi. No intercostal retract ions. HEART: Regular rate and rhythm. No murmur. ABDOMEN: Soft. Bowel sounds are present. No masses. No tenderness. EXTREMITIES: No pedal edema. No calf tenderness. NEUROLOGICAL: Patient is awake, alert and oriented x3. Cranial nerves 2 through 12 are grossly intact. ASSESSMENT AND PLAN 1. Severe spinal stenosis, spondylolisthesis, lower extremity radiculopathy and lower extremity weakness status post laminectomy and decompression, postoperative day #1. Continue current pain management, PT and OT, activity, continue incentive spirometry to reduce incidence of atelectasis and hospital- acquired pneumonia. 2. New onset A. fib with RVR, paroxysmal atrial fibrillation. Patient has converted to normal sinus rhythm, obtain TSH, continue metoprolol tartrate 5 mg twice daily, cardiology consult appreciated, echocardiogram ordered. 3. Hypertension. Continue hydrochlorothiazide 25 mg daily, Lopressor 25 mg twice daily. 4. Generalized osteoarthritis, stable. 5. GI prophylaxis. Protonix. 6. DVT prophylaxis. Early ambulation. DISCHARGE PLAN Home. Impression and plan of care have been directed as dictated by the signing andrea mccray. Milagro Romero nurse practitioner acting as scribe for signing physician. Past Medical History Past Medical History: Hypertension, Osteoarthritis (OA) Additional Past Medical History / Comment(s): DDD, BULDGING DISCS, BACK PAIN- USING WALKER., TINNITUS, OCCULAR HTN History of Any Multi-Drug Resistant Organisms: None Reported Past Surgical History: Hysterectomy, Tubal Ligation Additional Past Surgical History / Comment(s): FOOT SURGERY (DR CANTU), H EMORRHOIDECTOMY, COLONOSCOPY Past Anesthesia/Blood Transfusion Reactions: Previous Problems w/ Anesthesia, Motion Sickness, Postoperative Nausea & Vomiting (PONV) Additional Past Anesthesia/Blood Transfusion Reaction / Comm: MOTHER = ponv Past Psychological History: No Psychological Hx Reported Smoking Status: Never smoker Past Alcohol Use History: None Reported Past Drug Use History: None Reported - Past Family History Brother(s) Additional Family Medical History / Comment(s): KIDNEY REMOVED-UNSURE REASON Mother Family Medical History: AICD/Pacemaker, Hypertension Medications and Allergies Home Medications Medication Instructions Recorded Confirmed Type amLODIPine BESYLATE [Norvasc] 5 mg PO DAILY 02/03/19 05/30/21 History Cholecalciferol [Vitamin D3 (25 50 mcg PO DAILY 05/30/21 05/30/21 History Mcg = 1000 Iu)] Cyclobenzaprine [Flexeril] 10 mg PO Q8HR 05/30/21 05/30/21 History HYDROcodone/APAP 5-325MG [[place] 1 tab PO TID PRN 05/30/21 05/30/21 History 5-325] Ibuprofen [Motrin] 800 mg PO Q8H PRN 05/30/21 05/30/21 History Latanoprost/Pf [Latanoprost 0.005% 1 drop BOTH EYES HS 05/30/21 06/05/21 History Eye Drop] Magnesium/Potassium 1 tab PO DAILY 05/30/21 06/05/21 History Mv-Min/Folic/Vit K/[id number] 1 each PO DAILY 05/30/21 05/30/21 History [Alive Women's 50 Plus Tablet] Osteosheath Calcium Supplement 1 tab PO DAILY 05/30/21 History Valsartan 160 mg PO DAILY 05/30/21 05/30/21 History Vitamin B Complex 1 each PO DAILY 05/30/21 05/30/21 History hydroCHLOROthiazide 25 mg PO DAILY 05/30/21 05/30/21 History Allergies Allergy/AdvReac Type Severity Reaction Status Date / Time BANDAIDES AdvReac Unknown Rash/Hives Uncoded 05/30/21 08:52 Physical Exam Vitals: Vital Signs Temp Pulse Pulse Resp BP BP Pulse Ox 06/05/21 23:12 97.8 F 99 16 104/68 99 06/05/21 22:27 128 H 06/05/21 22:25 112 H 117/69 98 06/05/21 22:05 99 110/57 98 06/05/21 22:00 128 H 06/05/21 21:50 130 H 110/72 99 06/05/21 21:35 97.5 F L 125 H 17 113/69 98 06/05/21 20:57 85 16 126/61 100 06/05/21 20:42 94 18 135/69 100 06/05/21 20:27 94 16 137/75 100 06/05/21 20:12 80 16 122/58 100 06/05/21 19:57 96.9 F L 87 16 119/67 98 06/05/21 13:30 98.1 F 110 H 18 113/66 97 Intake and Output 06/05/21 06/06/21 06/06/21 22:59 06:59 14:59 Intake Total 1401.5 Output Total 780 510 Balance 621.5 -510 Intake: IV 1401.5 Output: Urine 380 510 Estimated Blood Loss 400 Other: Voiding Method Indwelling Catheter Indwelling Catheter Weight 81 kg Results CBC & Chem 7: 06/06/21 06:48 06/06/21 06:48 Labs: Abnormal Lab Results - Last 24 Hours (Table) 06/05/21 06/06/21 06/06/21 Range/Units 22:50 06:48 06:48 RBC 3.70 L (3.80-5.40) m/uL Hct 33.0 L (34.0-46.0) % Lymphocytes # 0.8 L (1.0-4.8) k/uL Sodium 134 L (137-145) mmol/L BUN 21 H (7-17) mg/dL Glucose 108 H (74-99) mg/dL POC Glucose (mg/dL) 157 H (75-99) mg/dL Total Protein 5.1 L (6.3-8.2) g/dL Albumin 3.0 L (3.5-5.0) g/dL TSH 0.460 L (0.465-4.680) mIU/L
--- NOTE | 2021-06-06 12:48 | P.PN ---
Progress Note - Text Progress Note Date: 06/06/21 Postoperative day #1 Patient is seen and examined today at bedside. The patient has some pain around the surgical site as expected. Pain is being controlled with medication. She has been out of bed. She still has her Smith intact. She denies any chest pain or shortness of breath. She had an issue with her cardiac rhythm yesterday but it is stabilized and she is a normal sinus now Physical Exam Afebrile with stable vital signs Abdomen is soft nontender. Chest has good excursion deep and space expiration The incision site is clean dry and intact. No erythema there is no purulence. Extremities have not had neurologic change from prior to surgery. She has sustained dorsal flexion plantar flexion and EHL and she is able to lift her knees up off the bed Calves and thighs were soft nontender without evidence of DVT. Assessment/Plan Postoperative day 1 status post minimally invasive decompression fusion L4 5 L5- S1 for her severe spinal stenosis with spondylolisthesis and lower extremity radiculopathy Patient is progressing as expected from the surgery. We will get her more mobile with physical therapy. She has not yet even anything today and we encouraged him oral intake. Her cardiac status appears to be stabilizing. We will continue to increase the patient's mobilization with therapy. We will continue pain control with oral or IV medications. We'll continue to follow patient closely.
--- NOTE | 2021-06-06 18:00 | ECHOF ---
Referral Reason:LV function, new afib MEASUREMENTS -------- HEIGHT: 165.1 cm WEIGHT: 80.7 kg BP: 104/68 IVSd: 1.3 cm (0.6 - 1.1) LVIDd: 4.0 cm (3.9 - 5.3) LVPWd: 1.3 cm (0.6 - 1.1) EDV(Teich): 68 ml IVSs: 1.5 cm LVIDs: 2.8 cm LVPWs: 2.0 cm %IVS Thck: 13 % ESV(Teich): 30 ml EF(Teich): 56 % %FS: 29 % SV(Teich): 38 ml RVIDd: 2.5 cm (< 3.3) LALs A4C: 4.7 cm LAAs A4C: 10.7 cm LAESV A-L A4C: 21 ml LAESV MOD A4C: 19 ml LALs A2C: 4.1 cm LAAs A2C: 13.5 cm LAESV A-L A2C: 37 ml LAESV MOD A2C: 36 ml LAESV(A-L): 30 ml LAESV Index (A-L): 15.83 ml/m Ao Diam: 3.4 cm (2.0 - 3.7) LA Diam: 3.1 cm (2.7 - 3.8) AV Cusp: 2.3 cm (1.5 - 2.6) EPSS: 0.7 cm MV E Eladio: 0.73 m/s MV DecT: 107 ms MV Dec [place]: 6.8 m/s MV A Eladio: 0.97 m/s MV E/A Ratio: 0.75 MV PHT: 31 ms LVOT Vmax: 0.83 m/s LVOT maxP.78 mmHg AV Vmax: 1.52 m/s AV maxP.19 mmHg TR Vmax: 2.41 m/s TR maxP.15 mmHg RAP: 5.00 mmHg RVSP: 28.15 mmHg MV EF SLOPE: 84.08 mm/s (70 - 150) MV EXCURSION: 19.09 mm (> 18.000) FINDINGS -------- Sinus rhythm. This was a technically adequate study. The left ventricular size is normal. There is mild concentric left ventricular hypertrophy. Overa ll left ventricular systolic function is normal with, an EF between 55 - 60 %. The diastolic fillin g pattern is normal for the age of the patient 9.68. The right ventricle is normal in size. Normal LA size by volume 22+/-6 ml/m2. The right atrial size is normal. Interatrial and interventricular septum intact. There is no evidence of aortic regurgitation. There is no evidence of aortic stenosis. There is trace to mild mitral regurgitation. Mild tricuspid regurgitation present. There is no evidence of pulmonary hypertension. The right v entricular systolic pressure, as measured by Doppler, is 28.15mmHg. There is no pulmonic regurgitation present. The aortic root size is normal. Normal inferior vena cava with normal inspiratory collapse consistent with estimated right atrial pre ssure of 5 mmHg. There is no pericardial effusion. CONCLUSIONS -------- 1. The left ventricular size is normal. 2. There is mild concentric left ventricular hypertrophy. 3. Overall left ventricular systolic function is normal with, an EF between 55 - 60 %. 4. The diastolic filling pattern is normal for the age of the patient 9.68 5. There is trace to mild mitral regurgitation. 6. Mild tricuspid regurgitation present. RESIDENTIAL LEASING AGENT: Kaylie Galaviz RDCS
[2021-06-06] MEDS: LATANOPROST 0.005% OPHTH DROPS 2.5 ML BTL BOTH EYES SCH (19:33)
[2021-06-07] MEDS: PANTOPRAZOLE 40 MG TABLET PO SCH (06:24)
--- NOTE | 2021-06-07 09:25 | P.PN ---
<Zoila Mallory - Last Filed: 06/07/21 09:52> Subjective Progress Note Date: 06/07/21 Principal diagnosis: Status post minimally invasive decompression fusion L4-5, L5-S1 This is a 60 year-old female post minimally invasive decompression fusion L4-5, L5-S1 for her severe spinal stenosis with spondylolisthesis and lower extremity radiculopathy. This is post-op day 2. The patient was evaluated at the bedside today. The patient denies nausea, vomiting, abdominal pain, shortness of breath , and chest pain this morning. She states her pain is controlled at this time. The patient has been up with physical therapy. Her lion was discontinued yesterday and she has been using the [employer] chair. Objective - Vital Signs Vital signs: Vital Signs Temp 98.8 F 06/07/21 08:00 Pulse 91 06/07/21 08:00 Resp 16 06/07/21 08:00 BP 114/71 06/07/21 08:00 Pulse Ox 94 L 06/07/21 08:00 Intake & Output 06/06/21 06/07/21 06/07/21 18:59 06:59 18:59 Intake Total 236 Output Total 1000 Balance -764 Weight 79 kg Intake: Oral 236 Output: Urine 1000 Other: Voiding Method Indwelling Catheter # Voids 2 - Exam The patient is a 60-year-old female who is in no acute distress. She is alert and oriented 3. Abdomen is soft and nontender. Chest has good excursion with deep inspiration. Incision site is clean dry and intact. No erythema or purulent drainage. Extremities has improved neurological change from prior to surgery. She sustained dorsiflexion and plantar flexion and EHL function. She has good foot and ankle motion. Bilateral calves are soft and nontender. Neurological and circulatory status is intact. - Labs CBC & Chem 7: 06/06/21 06:48 06/06/21 06:48 Assessment and Plan (1) Spondylolisthesis of lumbar region Current Visit: Yes Status: Acute Code(s): M43.16 - SPONDYLOLISTHESIS, LUMBAR REGION SNOMED Code(s): 670409721685249 (2) Lumbar spinal stenosis Current Visit: Yes Status: Acute Code(s): M48.061 - SPINAL STENOSIS, LUMBAR REGION WITHOUT NEUROGENIC ANDREA SNOMED Code(s): 15234084 (3) Degenerative disc disease, lumbar Current Visit: Yes Status: Acute Code(s): M51.36 - OTHER INTERVERTEBRAL DISC DEGENERATION, LUMBAR REGION SNOMED Code(s): 08058095 Plan: 1. Continue pain control 2. Continue physical therapy and ambulation 3. Anticipate discharge home when her pain is controlled and she is more ambulatory. <Lexus Cloud - Last Filed: 06/07/21 12:19> Objective - Vital Signs Vital signs: Vital Signs Temp 98.8 F 06/07/21 08:00 Pulse 80 06/07/21 12:07 Resp 16 06/07/21 12:07 BP 121/66 06/07/21 12:07 Pulse Ox 94 L 06/07/21 12:07 Intake & Output 06/06/21 06/07/21 06/07/21 18:59 06:59 18:59 Intake Total 236 180 Output Total 1000 Balance -764 180 Weight 79 kg Intake: Oral 236 180 Output: Urine 1000 Other: Voiding Method Indwelling Catheter Indwelling Catheter # Voids 2 1 - Labs CBC & Chem 7: 06/06/21 06:48 06/06/21 06:48 Assessment and Plan Plan: The patient is seen and examined at bedside. She is making improvement. She has been able to eat and she is passing gas. She may be comfortable for discharge home possibly tomorrow or the next day.
--- NOTE | 2021-06-07 09:35 | P.PN ---
Subjective Progress Note Date: 06/07/21 Principal diagnosis: Paroxysmal atrial fibrillation This is a pleasant 60-year-old female patient was admitted to the hospital and underwent surgery for severe spinal stenosis. Postoperatively the patient went into atrial fibrillation which lasted less than 24 hours and subsequently converted to normal sinus mechanism. The patient was seen this morning. She has been maintaining normal sinus mechanism with her heart rate is in the 80s. Currently she is on beta imani. The echo was performed and showed normal left ventricle systolic function. She is asymptomatic from a perivascular standpoint of view. Objective - Vital Signs Vital signs: Vital Signs Temp 98.8 F 06/07/21 08:00 Pulse 91 06/07/21 08:00 Resp 16 06/07/21 08:00 BP 114/71 06/07/21 08:00 Pulse Ox 94 L 06/07/21 08:00 Intake & Output 06/06/21 06/07/21 06/07/21 18:59 06:59 18:59 Intake Total 236 180 Output Total 1000 Balance -764 180 Weight 79 kg Intake: Oral 236 180 Output: Urine 1000 Other: Voiding Method Indwelling Catheter # Voids 2 - Constitutional General appearance: Present: no acute distress - Respiratory Respiratory: bilateral: CTA - Cardiovascular Rhythm: regular Heart sounds: normal: S1, S2 - Labs CBC & Chem 7: 06/06/21 06:48 06/06/21 06:48 Assessment and Plan Assessment: Assessment #1 new onset atrial fibrillation #2 chronic back pain and status post spinal stenosis #3 hypertension Plan #1 continue the current medical regimen #2 continue the current dose of metoprolol #3 follow-up with the patient
[2021-06-07] MEDS: CHOLECALCIFEROL 25 MCG (1000 IU) TABLET PO SCH (10:13)
[2021-06-07] MEDS: hydroCHLOROthiazide 25 MG TAB PO SCH (10:13)
[2021-06-07] MEDS: METOPROLOL TARTRATE 25 MG TAB PO SCH ×2 (10:14→20:08)
[2021-06-07] MEDS: MULTIVITAMINS, THERA 1 EACH TAB PO SCH (10:14)
--- NOTE | 2021-06-07 12:03 | P.PN ---
Subjective Progress Note Date: 06/07/21 HISTORY OF PRESENT ILLNESS This is a 60-year-old female patient of Dr. Antunez with past medical history of hypertension, osteoarthritis, degenerative disc disease, tinnitus. Patient has been brought into the hospital on the care of Dr. Cloud status post laminectomy and decompression L4-5, L5-S1 secondary to severe spinal stenosis, spondylolisthesis, lower extremity radiculopathy and lower extremity weakness. Last evening, patient had intermittent rapid heart rate and reported to be in atrial fibrillation, transferred to the cardiac stepdown unit, started Lopressor 25 mg twice daily and amlodipine was discontinued, consult with cardiology added. At the time of evaluation, patient is in a sinus rhythm and apparently converted when she arrived to the cardiac stepdown unit. Patient denies having any chest pain, shortness of breath. No nausea or vomiting. 06/07: Patient has been seen and followed by cardiology with plan to continue Lopressor 25 mg twice daily. Patient is chads score 2, no anticoagulation has been started. She denies having any palpitations or chest pain. cafeteria monitor is a sinus rhythm. She denies lightheadedness or dizziness. Patient states that she has walked in the hallway and has ongoing back discomfort. She states she ambulated very slowly. She is resting now she is tired from ambulating. PT has recommended home. Patient has been afebrile, heart rate 91, blood pressure 114/71, pulse ox 94% on room air. TSH 0.460 with normal free T4 of 1.39. REVIEW OF SYSTEMS Constitutional: No fever, no chills, no night sweats. No weight change. No weakness, fatigue or lethargy. No daytime sleepiness. EENT: No headache. No blurred vision or double vision, no loss of vision. No loss of Hearing, no ringing in the ears, no dizziness. No nasal drainage or congestion. No epistaxis. No sore throat. Lungs: No shortness of breath, cough, no sputum production. No wheezing. Cardiovascular: No chest pain, no lower extremity edema. No palpitations. No paroxysmal nocturnal dyspnea. No orthopnea. No lightheadedness or dizziness. No syncopal episodes. Abdominal: No abdominal pain. No nausea, vomiting. No diarrhea. No constipation. No bloody or tarry stools.. No loss of appetite. Genitourinary: No dysuria, increased frequency, urgency. No urinary retention. Musculoskeletal: No myalgias. No muscle weakness, no gait dysfunction, no frequent falls. Reports back pain. No neck pain. Integumentary: No wounds, no lesions. No rash or pruritus. No unusual bruising. No change in hair or nails. Neurologic: No aphasia. No facial droop. No change in mentation. No head injury. No headache. No paralysis. No paresthesia. Psychiatric: No depression. No anxiety. No mood swings. Endocrine: No abnormal blood sugars. No weight change. PHYSICAL EXAMINATION Gen: This is a 60-year-old female. Patient is resting in bed and appears to be comfortable and in no acute distress. HEENT: Head is atraumatic, normocephalic. Pupils equal, round. Sclerae is anicteric. NECK: Supple. No JVD. No lymphadenopathy. No thyromegaly. LUNGS: Clear to auscultation. No wheezes or rhonchi. No intercostal retractions. HEART: Regular rate and rhythm. No murmur. cafeteria monitor sinus rhythm. ABDOMEN: Soft. Bowel sounds are present. No masses. No tenderness. EXTREMITIES: No pedal edema. No calf tenderness. NEUROLOGICAL: Patient is awake, alert and oriented x3. Cranial nerves 2 through 12 are grossly intact. ASSESSMENT AND PLAN 1. Severe spinal stenosis, spondylolisthesis, lower extremity radiculopathy and lower extremity weakness status post laminectomy and decompression, postoperative day #1. Continue current pain management, PT and OT, activity, continue incentive spirometry to reduce incidence of atelectasis and hospital- acquired pneumonia. 2. New onset A. fib with RVR, paroxysmal atrial fibrillation. Patient has converted to normal sinus rhythm, obtain TSH, continue metoprolol tartrate 5 mg twice daily, cardiology consult appreciated, echocardiogram ordered. 3. Hypertension. Continue hydrochlorothiazide 25 mg daily, Lopressor 25 mg twice daily. 4. Generalized osteoarthritis, stable. 5. GI prophylaxis. Protonix. 6. DVT prophylaxis. Early ambulation. DISCHARGE PLAN Home. Impression and plan of care have been directed as dictated by the signing physician. Milagro Rmoero nurse practitioner acting as scribe for signing physician. Objective - Vital Signs Vital signs: Vital Signs Temp 98.8 F 06/07/21 08:00 Pulse 91 06/07/21 08:00 Resp 16 06/07/21 08:00 BP 114/71 06/07/21 08:00 Pulse Ox 94 L 06/07/21 08:00 Intake & Output 06/06/21 06/07/21 06/07/21 18:59 06:59 18:59 Intake Total 236 180 Output Total 1000 Balance -764 180 Weight 79 kg Intake: Oral 236 180 Output: Urine 1000 Other: Voiding Method Indwelling Catheter # Voids 2 - Labs CBC & Chem 7: 06/06/21 06:48 06/06/21 06:48
[2021-06-07] MEDS: SODIUM CHLORIDE 0.9% 1,000 ML IV SCH ×2 (17:30→23:26)
[2021-06-07] MEDS: HYDROcodone/APAP 5-325MG 1 EACH TAB PO PRN ×2 (17:30→22:09)
[2021-06-07] MEDS: LACTATED RINGERS 1,000 ML IV SCH (18:12)
[2021-06-07] MEDS: LATANOPROST 0.005% OPHTH DROPS 2.5 ML BTL BOTH EYES SCH (20:08)
[2021-06-07 22:31] VITALS: RESP 17
[2021-06-08] MEDS: LACTATED RINGERS 1,000 ML IV SCH (06:24)
[2021-06-08] MEDS: PANTOPRAZOLE 40 MG TABLET PO SCH (06:51)
[2021-06-08 08:51] VITALS: BP 122/63; PULSE 95; TEMP 99
--- NOTE | 2021-06-08 09:07 | P.PN ---
Subjective Progress Note Date: 06/08/21 Principal diagnosis: Paroxysmal atrial fibrillation This is a pleasant 60-year-old female patient was admitted to the hospital and underwent surgery for severe spinal stenosis. Postoperatively the patient went into atrial fibrillation which lasted less than 24 hours and subsequently converted to normal sinus mechanism. The patient was seen this morning. She has been maintaining normal sinus mechanism. She denies any symptoms of chest pain or chest discomfort. The echo showed normal left ventricular systolic function. She continues to be on metoprolol tartrate 25 mg by mouth twice a day. Objective - Vital Signs Vital signs: Vital Signs Temp 99 F 06/08/21 08:00 Pulse 95 06/08/21 08:00 Resp 17 06/08/21 08:00 BP 122/63 06/08/21 08:00 Pulse Ox 97 06/08/21 08:29 Intake & Output 06/07/21 06/08/21 06/08/21 18:59 06:59 18:59 Intake Total 540 325 240 Balance 540 325 240 Weight 82.3 kg Intake: Intake, IV Titration 225 Amount Sodium Chloride 0.9% 1, 225 000 ml @ 75 mls/hr IV . [id number] [facility] Rx#:[id number] Oral 540 100 240 Other: Voiding Method Indwelling Catheter Indwelling Catheter Indwelling Catheter # Voids 1 1 - Constitutional General appearance: Present: no acute distress - Respiratory Respiratory: bilateral: diminished - Cardiovascular Rhythm: regular Heart sounds: normal: S1, S2 - Labs CBC & Chem 7: 06/06/21 06:48 06/06/21 06:48 Assessment and Plan Assessment: Assessment #1 new onset atrial fibrillation #2 chronic back pain and status post spinal stenosis #3 hypertension Plan #1 continue the current medical regimen #2 continue the current dose of metoprolol
[2021-06-08] MEDS: MULTIVITAMINS, THERA 1 EACH TAB PO SCH ×2 (09:36→09:37)
[2021-06-08] MEDS: hydroCHLOROthiazide 25 MG TAB PO SCH (09:36)
[2021-06-08] MEDS: CHOLECALCIFEROL 25 MCG (1000 IU) TABLET PO SCH (09:36)
[2021-06-08] MEDS: METOPROLOL TARTRATE 25 MG TAB PO SCH (09:37)
--- NOTE | 2021-06-08 09:37 | P.DS ---
Providers Date of admission: 06/05/21 20:01 Attending physician: Lexus Cloud Consults: 06/05/21 20:01 Consult Physician Routine Consulting Provider: Drew Antunez Consult Reason/Comments: Medical Management Do you want consulting provider notified?: Yes 06/05/21 22:13 Consult Physician Urgent Consulting Provider: Randy Brice Consult Reason/Comments: new onset of A-Fib RVR Do you want consulting provider notified?: Yes Primary care physician: Drew Antunez [facility] Course: The patient presented on the day of admission as per their operative note. She had severe spondylolisthesis with spinal stenosis L4 5 L5-S1 and underwent minimally invasive decompression and fusion as per her operative note. She feels that she is doing well. She feels her legs have made improvement since prior to surgery. Her back pain is improving and she is getting her mobility. She has had a bowel movement and she is voiding freely. She has been getting in and out of bed on her own last night and this morning. Physical Exam The incision site is clean dry and intact at her lower back. There is no erythema no drainage. There is no purulence no evidence of infection. Abdomen soft and nontender. Chest has good excursion with deep inspiration and expiration. The patient has active and passive range of motion intact at the upper and lower extremities. There is no acute change in neurologic status. She has sustained dorsal flexion plantar flexion and EHL intact in her bilateral lower extremities Hospital Course Postoperative day #3 status post minimally invasive decompression and fusion L4 5 L5-S1 for her severe spinal stenosis with spondylolisthesis L4 5 L5-S1 with lower extremity radicular pain weakness. She is not having any problems with her cardiac rhythm blood pressure or breath ing. She is not having any chest pain or shortness of breath. The patient has been making good progress postoperatively. They have completed the prophylactic antibiotics without any signs or symptoms of infection. The patient has been able to advance their diet, and is tolerating diet adequately. The pain was initially controlled with IV medications and is now controlled appropriately with oral medications. The patient has been able to increase their mobilization. The patient has progressed appropriately. I think they are in good stable condition for discharge today. They will be sent home with appropriate prescriptions. I answered their questions to the best of my ability in a language that they can understand and they are agreeable with the plan. They will follow up as directed in approximately 2 weeks or sooner if she has any issues. We will need to have her off work for 4-12 weeks depending on level of activity that she is going to be doing at work. Before she would return to full duty at work I think it would be at least 12 weeks time but she may be able to some light work her home activities prior to the. I discussed this with her at length.. Patient Condition at Discharge: Good Plan - Discharge Summary Discharge Rx Participant: No New Discharge Prescriptions: New HYDROcodone/APAP 5-325MG [[place] 5] 1 each PO Q6HR PRN #28 tab PRN Reason: Pain No Action amLODIPine BESYLATE [Norvasc] 5 mg PO DAILY Latanoprost/Pf [Latanoprost 0.005% Eye Drop] 1 drop BOTH EYES HS HYDROcodone/APAP 5-325MG [[place] 5-325] 1 tab PO TID PRN PRN Reason: Pain Cyclobenzaprine [Flexeril] 10 mg PO Q8HR Ibuprofen [Motrin] 800 mg PO Q8H PRN PRN Reason: Pain Cholecalciferol [Vitamin D3 (25 Mcg = 1000 Iu)] 50 mcg PO DAILY Mv-Min/Folic/Vit K/Lut/[id number] [Alive Women's 50 Plus Tablet] 1 each PO DAILY Osteosheath Calcium Supplement 1 tab PO DAILY hydroCHLOROthiazide 25 mg PO DAILY Valsartan 160 mg PO DAILY Vitamin B Complex 1 each PO DAILY Magnesium/Potassium 1 tab PO DAILY Discharge Medication List amLODIPine BESYLATE [Norvasc] 5 mg PO DAILY 02/03/19 [History] Cholecalciferol [Vitamin D3 (25 Mcg = 1000 Iu)] 50 mcg PO DAILY 05/30/21 [History] Cyclobenzaprine [Flexeril] 10 mg PO Q8HR 05/30/21 [History] HYDROcodone/APAP 5-325MG [[place] 5-325] 1 tab PO TID PRN 05/30/21 [History] Ibuprofen [Motrin] 800 mg PO Q8H PRN 05/30/21 [History] Latanoprost/Pf [Latanoprost 0.005% Eye Drop] 1 drop BOTH EYES HS 05/30/21 [History] Magnesium/Potassium 1 tab PO DAILY 05/30/21 [History] Mv-Min/Folic/Vit K/Lut/[id number] [Alive Women's 50 Plus Tablet] 1 each PO DAILY 05/30/21 [History] Osteosheath Calcium Supplement 1 tab PO DAILY 05/30/21 [History] Valsartan 160 mg PO DAILY 05/30/21 [History] Vitamin B Complex 1 each PO DAILY 05/30/21 [History] hydroCHLOROthiazide 25 mg PO DAILY 05/30/21 [History] HYDROcodone/APAP 5-325MG [[place] 5] 1 each PO Q6HR PRN #28 tab 06/07/21 [Rx] Follow up Appointment(s)/Referral(s): Lexus Cloud DO [Doctor of Osteopathic Medicine] - 2 Weeks Activity/Diet/Wound Care/Special Instructions: Keep site clean. May shower with waterproof Tegaderm intact. Do not soak in a tub. After 72 hours postoperatively, patient May remove dressing and then may shower with area uncovered. Leave glue intact and allow it to fray off on its own. May ambulate as tolerated. Avoid heavy or rigorous activity. No repetitive bending twisting or lifting. No overhead work. Discharge Disposition: HOME SELF-CARE
--- NOTE | 2021-06-08 19:07 | P.PN ---
Subjective Progress Note Date: 06/08/21 This is a 60-year-old female patient of Dr. Antunez with past medical history of hypertension, osteoarthritis, degenerative disc disease, tinnitus. Patient has been brought into the hospital on the care of Dr. Cloud status post laminectomy and decompression L4-5, L5-S1 secondary to severe spinal stenosis, spondylolisthesis, lower extremity radiculopathy and lower extremity weakness. Last evening, patient had intermittent rapid heart rate and reported to be in atrial fibrillation, transferred to the cardiac stepdown unit, started Lopressor 25 mg twice daily and amlodipine was discontinued, consult with cardiology added. At the time of evaluation, patient is in a sinus rhythm and apparently converted when she arrived to the cardiac stepdown unit. Patient denies having any chest pain, shortness of breath. No nausea or vomiting. 06/07: Patient has been seen and followed by cardiology with plan to continue Lopressor 25 mg twice daily. Patient is chads score 2, no anticoagulation has been started. She denies having any palpitations or chest pain. 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 She denies lightheadedness or dizziness. Patient states that she has walked in the hallway and has ongoing back discomfort. She states she ambulated very slowly. She is resting now she is tired from ambulat ing. PT has recommended home. Patient has been afebrile, heart rate 91, blood pressure 114/71, pulse ox 94% on room air. TSH 0.460 with normal free T4 of 1.39. 06/08, patient's doing well this time, ambulating much better, no lightheadedness no dizziness, possibly pain is under control, no new problems today, no medication changes from cardiology, on metoprolol 25 mg twice a day, she is getting prepped for discharge later today. REVIEW OF SYSTEMS Constitutional: No fever, no chills, no night sweats. No weight change. No weakness, fatigue or lethargy. No daytime sleepiness. EENT: No headache. No blurred vision or double vision, no loss of vision. No loss of Hearing, no ringing in the ears, no dizziness. No nasal drainage or congestion. No epistaxis. No sore throat. Lungs: No shortness of breath, cough, no sputum production. No wheezing. Cardiovascular: No chest pain, no lower extremity edema. No palpitations. No paroxysmal nocturnal dyspnea. No orthopnea. No lightheadedness or dizziness. No syncopal episodes. Abdominal: No abdominal pain. No nausea, vomiting. No diarrhea. No constipation. No bloody or tarry stools.. No loss of appetite. Genitourinary: No dysuria, increased frequency, urgency. No urinary retention. Musculoskeletal: No myalgias. No muscle weakness, no gait dysfunction, no frequent falls. Reports back pain. No neck pain. Integumentary: No wounds, no lesions. No rash or pruritus. No unusual bruising. No change in hair or nails. Neurologic: No aphasia. No facial droop. No change in mentation. No head injury. No headache. No paralysis. No paresthesia. Psychiatric: No depression. No anxiety. No mood swings. Endocrine: No abnormal blood sugars. No weight change. Objective - Vital Signs Vital signs: Vital Signs Temp 99 F 06/08/21 08:00 Pulse 95 06/08/21 08:00 Resp 17 06/08/21 08:00 BP 122/63 06/08/21 08:00 Pulse Ox 97 06/08/21 08:29 Intake & Output 06/07/21 06/08/21 06/08/21 18:59 06:59 18:59 Intake Total 540 325 240 Balance 540 325 240 Weight 82.3 kg Intake: Intake, IV Titration 225 Amount Sodium Chloride 0.9% 1, 225 000 ml @ 75 mls/hr IV . [id number] [facility] Rx#:[id number] Oral 540 100 240 Other: Voiding Method Indwelling Catheter Indwelling Catheter Indwelling Catheter # Voids 1 1 - Constitutional General appearance: Present: cooperative, no acute distress - EENT Eyes: Present: EOMI, PERRLA, dentition normal ENT: Present: NA/AT - Neck Neck: Present: normal ROM - Respiratory Respiratory: bilateral: CTA, negative: diminished, dullness - Cardiovascular Rhythm: regular - Gastrointestinal General gastrointestinal: Present: normal bowel sounds - Labs CBC & Chem 7: 06/06/21 06:48 06/06/21 06:48 Assessment and Plan Plan: 1. Severe spinal stenosis, spondylolisthesis, lower extremity radiculopathy and lower extremity weakness status post laminectomy and decompression, postoperati ve day #1. Continue current pain management, PT and OT, activity, continue incentive spirometry to reduce incidence of atelectasis and hospital-acquired pneumonia. 2. New onset A. fib with RVR, paroxysmal atrial fibrillation that lasted than 24 hours,. Patient has converted to normal sinus rhythm, obtain TSH normal, continue metoprolol tartrate 5 mg twice daily, cardiology consult appreciated, echocardiogram ordered. 3. Hypertension. Continue hydrochlorothiazide 25 mg daily, Lopressor 25 mg twice daily. 4. Generalized osteoarthritis, stable. 5. GI prophylaxis. Protonix. 6. DVT prophylaxis. Early ambulation. DISCHARGE PLAN Home. Stable for discharge home today
== END 2021-06-08 11:27 | disposition home or self-care (01) | DRG 455 ==
LOC: OR 12:26 → 3SCARD 20:01 → 4SSUR 20:16 → 3SCARD 22:54
PROVIDERS: ADMIT Orthopaedic Surgery Orthopaedic Surgery of the Spine; ATTEND Orthopaedic Surgery Orthopaedic Surgery of the Spine
PROC: 0ST40ZZ Resection of Lumbosacral Disc, Open Approach (ICD-10-PCS; principal; 2021-06-05 13:30)
PROC: 0SB40ZZ Excision of Lumbosacral Disc, Open Approach (ICD-10-PCS; principal; 2021-06-05 13:30)
PROC: 07DR3ZZ Extraction of Iliac Bone Marrow, Percutaneous Approach (ICD-10-PCS; principal; 2021-06-05 13:30)
PROC: 0SG0071 Fusion of Lumbar Vertebral Joint with Autologous Tissue Substitute, Posterior Approach, Posterior Column, Open Approach (ICD-10-PCS; principal; 2021-06-05 13:30)
PROC: 01NR0ZZ Release Sacral Nerve, Open Approach (ICD-10-PCS; principal; 2021-06-05 13:30)
PROC: 0SG30AJ Fusion of Lumbosacral Joint with Interbody Fusion Device, Posterior Approach, Anterior Column, Open Approach (ICD-10-PCS; principal; 2021-06-05 13:30)
PROC: 01NB0ZZ Release Lumbar Nerve, Open Approach (ICD-10-PCS; principal; 2021-06-05 13:30)
PROC: 0SG00A0 Fusion of Lumbar Vertebral Joint with Interbody Fusion Device, Anterior Approach, Anterior Column, Open Approach (ICD-10-PCS; principal; 2021-06-05 13:30)
DX: M48.061 Spinal stenosis, lumbar region without neurogenic claudication (principal); M51.16 Intervertebral disc disorders with radiculopathy, lumbar region; M43.16 Spondylolisthesis, lumbar region; Z79.899 Other long term (current) drug therapy; Z82.49 Family history of ischemic heart disease and other diseases of the circulatory system; Z90.710 Acquired absence of both cervix and uterus; I10 Essential (primary) hypertension; G89.29 Other chronic pain; I48.0 Paroxysmal atrial fibrillation; M15.9 Polyosteoarthritis, unspecified; M51.17 Intervertebral disc disorders with radiculopathy, lumbosacral region; M19.90 Unspecified osteoarthritis, unspecified site
CPT/HCPCS: 72100; 80053; 81003; 83735; 84132; 84439; 84443; 84481; 85025; 86850; 86891; 86900; 86901; 93005; 93306; 94760

== ENCOUNTER → 2022-01-28 | Outpatient (CLI) | payer BC ==
--- NOTE | 2022-01-29 12:03 | MM ---
Reason for exam: screening (asymptomatic). Last mammogram was performed 1 year and 6 months ago. History: Patient is postmenopausal. Benign right US cyst aspiration ea add of the right breast, December 10, 2006. Benign right US cyst aspiration of the right breast, December 10, 2006. Took hormonal contraceptives for 6 years beginning at age 16. Physical Findings: A clinical breast exam by your physician is recommended on an annual basis and results should be correlated with mammographic findings. MG 3D Screening Mammo W/Cad Bilateral CC and MLO view(s) were taken. Prior study comparison: July 23, 2020, bilateral MG 3d screening mammo w/cad. February 01, 2019, bilateral MG screening mammo w CAD. The breast tissue is heterogeneously dense. This may lower the sensitivity of mammography. Finding: There are typically benign round, regional and diffuse/scattered calcifications in both breasts. There is no discrete abnormality. ASSESSMENT: Benign, BI-RAD 2 RECOMMENDATION: Routine screening mammogram of both breasts in 1 year.
== END | disposition home or self-care (01) ==
LOC: RADMAMWWP 15:57
PROVIDERS: ATTEND Internal Medicine Geriatric Medicine
DX: Z12.31 Encounter for screening mammogram for malignant neoplasm of breast (principal); Z78.0 Asymptomatic menopausal state
CPT/HCPCS: 77063; 77067

== ENCOUNTER → 2022-10-10 | Outpatient (CLI) | payer BC ==
[2022-10-10 17:52] LABS: INR 0.9 (<1.2); Partial Thromboplastin Time 24.6 sec (22.0-30.0); Prothrombin Time 9.9 sec (9.0-12.0)
[2022-10-10 23:24] LABS: HCT 39.7 % (37.2-46.3); HGB 12.6 g/dL (12.0-15.0); MCH 28.6 pg (27.0-32.0); MCHC 31.7 g/dL (32.0-37.0); Mean Platelet Volume 10.2 fL (9.5-12.2); NRBC Per 100 WBC 0 /100 WBCS (0.0-0.0); Platelet Count 290 X 10*3/uL (140-440); RBC 4.41 X 10*6/uL (4.10-5.20); RDW 12.6 % (11.5-14.5); WBC 7.77 X 10*3/uL (4.50-10.00)
[2022-10-10 23:25] LABS: African American GFR (CKD) 48.8 (60.0-200.0); Albumin 4.7 g/dL (3.8-4.9); Albumin/Globulin Ratio 2.08 (1.60-3.17); Anion Gap 13.1 mmol/L (10.00-18.00); BUN/Creat Ratio 16.84 Ratio (12.00-20.00); Blood Urea Nitrogen 22.4 mg/dL (9.0-27.0); Calcium 10.2 mg/dL (8.7-10.3); Carbon Dioxide 25.7 mmol/L (20.0-27.5); Globulin 2.2 g/dL (1.6-3.3); Non-African American GFR(CKD) 42.1 (60.0-200.0); Potassium 4.7 mmol/L (3.5-5.5); Total Bilirubin 0.3 mg/dL (0.30-1.20); Total Protein 6.9 g/dL (6.2-8.2)
[2022-10-11 12:24] LABS: Appearance,Urine Clear (Clear); Bilirubin,Urine Negative (Negative); Blood,Urine Negative (Negative); Color,Urine Yellow (Yellow); Ketones,Urine Negative (Negative); Nitrite,Urine Negative (Negative); Specific Gravity,Urine 1.007 (1.001-1.030); Urobilinogen,Urine 0.2 (0.2,1.0)
== END | disposition home or self-care (01) ==
LOC: LABPAT 16:04
PROVIDERS: ATTEND Orthopaedic Surgery
DX: Z01.812 Encounter for preprocedural laboratory examination (principal); M16.11 Unilateral primary osteoarthritis, right hip
CPT/HCPCS: 80053; 81003; 85027; 85610; 85730

== ENCOUNTER 2022-10-21 07:22 | Day surgery (SDC) | payer BC ==
[~2022-10-21 07:22] MED LIST changes: +ACETAMINOPHEN TAB 500 MG TAB PO PRN; +DEXAMETHASONE SOD PHOSPHATE 4 MG/ML 1 ML VIAL IV ONE; +GABAPENTIN 300 MG CAP PO PRN; +HYDROmorphone 0.5 MG/0.5 ML SYRINGE IVP PRN; +MELOXICAM 7.5 MG TAB PO PRN; +MIDAZOLAM 2 MG/2 ML VIAL IV PRN; +TRANEXAMIC ACID IN NACL,ISO-OS 1,000 MG in SALINE 1 100ML.BAG IVPB PRN; -ceFAZolin 1,000 MG in SODIUM CHLORIDE 0.9% IRRIGATIO 1,000 ML IRRIGATION PRN
[2022-10-21] MEDS ORDERED: SCOPOLAMINE 1 MG/72 HR PATCH TRANSDERM ONE (07:45)
[2022-10-21] MEDS ORDERED: MAGNESIUM HYDROXIDE 2,400 MG/10 ML CUP PO PRN (07:53)
[2022-10-21] MEDS ORDERED: NALOXONE 0.4 MG/ML 1 ML VIAL IV PRN (07:53)
[2022-10-21] MEDS ORDERED: ONDANSETRON 4 MG/2 ML VIAL IVP PRN (07:53)
[2022-10-21] MEDS ORDERED: HYDROmorphone 0.5 MG/0.5 ML SYRINGE IVP PRN ×2 (07:53)
[2022-10-21] MEDS ORDERED: HYDROmorphone 1 MG/ML 1 ML SYRINGE IVP PRN (07:53)
[2022-10-21] MEDS ORDERED: HYDROcodone/APAP 7.5-325MG 1 EACH TAB PO PRN (07:55)
[2022-10-21] MEDS ORDERED: MIDAZOLAM 2 MG/2 ML VIAL IVP ONE (07:59)
[2022-10-21] MEDS: LACTATED RINGERS 1,000 ML IV SCH (08:15)
[2022-10-21] MEDS ORDERED: fentaNYL (PF) 50 MCG/ML 2 ML AMP ONE (08:26)
[2022-10-21] MEDS ORDERED: PHENYLEPHRINE-0.9% NACL SYG 1,000 MCG/10 ML SYRINGE ONE (08:26)
[2022-10-21] MEDS ORDERED: ROPIVACAINE 5 MG/ML 30 ML VIAL ONE (08:26)
[2022-10-21] MEDS ORDERED: KETAMINE 10 MG/ML 20 ML VIAL ONE (08:26)
[2022-10-21] MEDS ORDERED: ePHEDrine 50 MG/ML 1 ML VIAL ONE (08:26)
[2022-10-21] MEDS ORDERED: TRANEXAMIC ACID IN NACL,ISO-OS 1,000 MG/100 ML BAG ONE (08:26)
[2022-10-21] MEDS ORDERED: MIDAZOLAM 2 MG/2 ML VIAL ONE (08:26)
[2022-10-21] MEDS ORDERED: PROPOFOL 10 MG/ML 20 ML VIAL IV ONE (08:26)
[2022-10-21] MEDS ORDERED: DEXAMETHASONE SOD PHOSPHATE 4 MG/ML 1 ML VIAL ONE (08:26)
[2022-10-21] MEDS ORDERED: ceFAZolin 1,000 MG in SODIUM CHLORIDE 0.9% 1,000 ML IRRIGATION ONE (08:31)
[2022-10-21] MEDS ORDERED: ROPIVACAINE 5 MG/ML 30 ML VIAL MISCELLANE ONE ×2 (08:55→09:34)
--- NOTE | 2022-10-21 09:40 | P.OP ---
Date of Procedure: 10/21/22 Preoperative Diagnosis: Severe osteoarthritis right hip Postoperative Diagnosis: Severe osteoarthritis right hip Procedure(s) Performed: Right total hip arthroplasty direct anterior approach Implants: [employer] Polarstem standard size 3 [employer] R3, 3 hole hemispherical acetabular shell, 52 mm [employer] Reflection 6.5 mm cancellus screw, 20 mm 2 [employer] R3, XLPE 20 acetabular liner [employer] Oxinium femoral head 36 m, +4 All components were press-fit. The articulation is Oxinium on polyethylene. Anesthesia: spinal Surgeon: Paolo York Data Virtualization Consultant #1: Paris Hardy Estimated Blood Loss (ml): 300 Pathology: other (Femoral head) Condition: stable Disposition: PACU Indications for Procedure: After failure of conservative treatment we discussed the surgical and nonsurgical treatment options at length. Patient wishes to proceed with a total hip arthroplasty with a direct anterior approach. Complications specific to this procedure were discussed at length, including but not limited to infection, leg length discrepancy, dislocation, nerve injury, and fracture. Covid-19 was also discussed at length with the patient, and they are aware of the current policies and procedures. The patient was given the option of delaying surgery, but they elect to proceed knowing these risks. Patient is aware of all these complications and informed consent was obtained Operative Findings: The operative findings are consistent with severe osteoarthritis of the right hip Description of Procedure: The patient was seen and evaluated in the preoperative area and the consent was reviewed. The operative site was marked with a skin marker. The patient verified the procedure and operative site. A MIKE block was placed by kristie oconnor in the preoperative area. The patient was then brought to the operating room and given preoperative antibiotics intravenously. 1 g of Tranexamic acid was also given intravenously. A spinal anesthetic was administered by the anesthesia department. The patient was then placed on the [place] table with the bony prominences well-padded. The hip area was then prepped with a ChloraPrep solution and draped in the usual sterile fashion. A universal timeout was then performed, which confirmed the patient's name, surgical site, ALLERGIES, and procedure being performed on the consent. Next th e incision site was located at 1 cm distal and 4 cm lateral to the anterior superior iliac spine. The skin and subcutaneous tissues were sharply incised. Incision was carefully dissected down to the fascia overlying the tensor fascia leon muscle. This fascia was then incised in line with the muscle fibers. Care was taken to stay laterally in order to avoid injuring the lateral femoral cutaneous nerve. Next, using blunt finger dissection, the tensor fascia leon muscle was dissected off its investing fascia. The muscle was then carefully retracted laterally with a cobra retractor over the lateral neck of the femur. Next, the circumflex vessels were identified and cauterized using the Aquamantis device. The anterior hip capsule was then exposed. The capsule was then opened and an inverted T fashion. The retractors were then placed intracapsularly. The retractors were maintained intracapsular throughout the procedure. The proximal femur was then visualized. Fluoroscopic x-rays were then taken in order to evaluate the preoperative leg lengths. A small amount of traction was placed on the leg. The femoral neck was then osteotomized at the appropriate level above the lesser trochanter. A small wedge of bone was then removed from the remaining femoral head. Next, using a corkscrew the femoral head was removed from the acetabulum. On gross visual inspection, the femoral head had complete loss of articular cartilage and multiple periarticular osteophytes. The femoral head was then measured. Attention was then turned to the acetabulum. The acetabulum was exposed and any remaining labrum was excised. Sequential reaming of the acetabulum was performed using fluoroscopic guidance until there was a good bed of bleeding cancellus bone. When the appropriate size was reached, a trial was then placed. The position and fit of the trial was checked with fluoroscopy. The trial was then removed. Then, using fluoroscopic guidance, the final implant was impacted at 20 of anteversion and 40 of abduction, and fully seated in the acetabulum. 2 screws were then placed in the acetabulum. Again fluoroscopy was used to check position of the screws. Next, the liner was then impacted, with a 20 elevated liner located in the anterior superior quadrant. Component locking was confirmed. Attention was then directed to the femur. With the aid of the [place] table, the femur was externally rotated to approximately 130, extended, and adducted under the opposite leg. A side hook was then placed under the proximal femur, and the side hook elevator was used to elevate the proximal femur while releasing the capsule. Retractors were then placed. A capsular release was performed, as well as a release of the conjoined tendon, which afforded excellent visualizati on of the proximal femur. Next, a box osteotome was used to lateralize the proximal femur. A warehouse freight handler was then used to locate the femoral canal. Sequential broaching was then performed with appropriate size which afforded excellent fixation in the proximal femur. A trial was then placed with appropriate head and neck, and the hip was gently reduced with the aid of the [place] table. Fluoroscopy was then used to check position of the components, as well as to evaluate the leg lengths and offset. The leg lengths and offset were measured as closely as possible to ensure stability of the hip. The hip was then gently dislocated and the trials were then removed. Final implants were then impacted and the hip was again reduced. Final fluoroscopic x-rays confirmed that the components were in anatomic position. The leg lengths and offset were measured and were found to coincide with the trial measurements. The hip was also taken through range of motion, and found to be stable. The hip was then copiously irrigated with antibiotic solution with pulsatile lavage. The hip was then irrigated with Irrisept solution. The soft tissues were then injected with a ropivacaine solution. A second dose of 1 g of Tranexamic acid was also given intravenously. The fascia was then closed with 2-0 strata fix suture. The subcutaneous tissue was closed with 3-0 Vicryl. The subcuticular tissue was closed with 3-0 strata fix suture. The skin was then closed with Exofin skin glue. After the glue and dried, and Optifoam silver impregnated dressing was applied. The patient was then transferred to the recovery room in stable condition. The food trades assistants LATOYA Estrella was required due to the complexity of surgery, and the need for skilled surgical dressing maker for positioning, draping, exposure, retraction, and closure of the wound.
[2022-10-21] MEDS ORDERED: LACTATED RINGERS 1,000 ML IV ONE ×3 (10:00→11:54)
--- NOTE | 2022-10-21 10:14 | FL ---
EXAMINATION TYPE: FL guidance operating room, XR Hip Limited RT DATE OF EXAM: 10/21/2022 COMPARISON: NONE HISTORY: 62-year-old female anterior right hip replacement FINDINGS: Intraoperative fluoroscopy during right hip total arthroplasty. There is at least mild degenerative c hange at the left hip noted. FLUOROSCOPY Fluoroscopy time of 41 seconds was used during right hip: Plasty. 4 image/s document/s the procedure . IMPRESSION: Intraoperative fluoroscopy as outlined above.
--- NOTE | 2022-10-21 11:23 | P.ANPRN ---
Procedure Note - Anesthesia - Nerve Block Performed Right Hank Single Time Out Performed: Yes Date of Procedure: 10/21/22 Procedure Start Time: 07:59 Procedure Stop Time: 08:10 Location of Patient: PreOp Indication: Acute Post-Operative Pain, Requested by Surgeon Sedation Type: Sedate with meaningful contact maintained Preparation: Sterile Prep Position: Supine Needle Types: [place]aj[place] Needle Gauge: 21 Ultrasound used to visualize needle placement: Yes Ultrasound used to observe medication spread: Yes Blood Aspirated: No Pain Paresthesia on Injection Noted: No Resistance on Injection: Normal Image Stored and Saved: Yes Events: Uneventful and Well Tolerated (ropi .5% 20cc plus dexamethasone 4mg)
--- NOTE | 2022-10-21 11:54 | XR ---
EXAMINATION TYPE: XR Hip Limited RT DATE OF EXAM: 10/21/2022 Comparison: None Clinical History: 62-year-old female Status post hip surgery, assess surgical alignment Findings: Single frontal view shows right hip total arthroplasty. Acetabular cup and femoral stem components of the prosthesis are well seated without periprosthetic fracture. Alignment grossly anatomic. Soft tis juan air related to recent operation. Impression: Uncomplicated postoperative appearance right total hip arthroplasty.
[2022-10-21] MEDS: SODIUM CHLORIDE 0.9% 1,000 ML IV SCH (12:48)
[2022-10-21] MEDS: HYDROcodone/APAP 7.5-325MG 1 EACH TAB PO PRN ×2 (12:51→18:41)
--- NOTE | 2022-10-21 14:07 | P.CONS ---
History of Present Illness - Reason for Consult Consult date: 10/21/22 - History of Present Illness History of present illness; patient is a 62-related past medical history significant for hypertension, atrial fibrillation, osteoarthritis who presented to the hospital for elective right hip total arthroplasty. Patient has been having this hip pain for the last few months, was being seen outpatient by orthopedic and when conservative measures failed, patient was scheduled for right hip arthroplasty. Patient was seen postoperatively for medical management. Currently patient is alert and oriented, maintaining conversation. Denies any chest pain or shortness of breath. Patient is hemodynamically stable, blood pressure of 109/66, respirations 17, heart rate of 78, the patient is afebrile. REVIEW OF SYSTEMS: CONSTITUTIONAL: No fever, no malaise, no fatigue. HEENT: No recent visual problems or hearing problems. Denied any sore throat. CARDIOVASCULAR: No chest pain, orthopnea, PND, no palpitations, no syncope. PULMONARY: No shortness of breath, no cough, no hemoptysis. GASTROINTESTINAL: No diarrhea, no nausea, no vomiting, no abdominal pain. NEUROLOGICAL: No headaches, no weakness, no numbness. HEMATOLOGICAL: Denies any bleeding or petechiae. GENITOURINARY: Denies any burning micturition, frequency, or urgency. MUSCULOSKELETAL/RHEUMATOLOGICAL: Right hip pain ENDOCRINE: Denies any polyuria or polydipsia. The rest of the 14-point review of systems is negative. PHYSICAL EXAMINATION: GENERAL: The patient is alert and oriented x3, not in any acute distress. Well developed, well nourished. HEENT: Pupils are round and equally reacting to light. EOMI. No scleral icterus. No conjunctival pallor. Normocephalic, atraumatic. No pharyngeal erythema. No thyromegaly. CARDIOVASCULAR: S1 and S2 present. No murmurs, rubs, or gallops. PULMONARY: Chest is clear to auscultation, no wheezing or crackles. ABDOMEN: Soft, nontender, nondistended, normoactive bowel sounds. No palpable organomegaly. MUSCULOSKELETAL: No joint swelling or deformity. EXTREMITIES: No cyanosis, clubbing, or pedal edema. Right hip surgical incision seen NEUROLOGICAL: Gross neurological examination did not reveal any focal deficits. SKIN: No rashes. Assessment and plan Status post right hip total arthroplasty Hypertension Atrial fibrillation Plan; Monitor vital signs monitor CBC Continue pain management per orthopedics Continue DVT prophylaxis per orthopedics Resume Toprol Hold off on resuming the blood pressure medications because of patient's low blood pressure PT and OT evaluation Past Medical History Past Medical History: Atrial Fibrillation, Hypertension, Osteoarthritis (OA) Additional Past Medical History / Comment(s): DDD, TINNITUS, hx. of A-fib-takes metoprolol for History of Any Multi-Drug Resistant Organisms: None Reported Past Surgical History: Back Surgery, Cholecystectomy, Hysterectomy, Orthopedic Surgery, Tubal Ligation Additional Past Surgical History / Comment(s): right FOOT SURGERY, HEMORRHOIDECTOMY, COLONOSCOPY, lumbar fusion Past Anesthesia/Blood Transfusion Reactions: Previous Problems w/ Anesthesia, Motion Sickness, Postoperative Nausea & Vomiting (PONV) Additional Past Anesthesia/Blood Transfusion Reaction / Comm: MOTHER = ponv Past Psychological History: No Psychological Hx Reported Smoking Status: Never smoker Past Alcohol Use History: None Reported Past Drug Use History: None Reported - Past Family History Mother Family Medical History: No Reported History Brother(s) Additional Family Medical History / Comment(s): KIDNEY REMOVED-UNSURE REASON Medications and Allergies Home Medications Medication Instructions Recorded Confirmed Type Cholecalciferol [Vitamin D3 (25 50 mcg PO DAILY 05/30/21 10/16/22 History Mcg = 1000 Iu)] Mv-Min/Folic/Vit K/Lut/[id number] 1 each PO DAILY 05/30/21 10/16/22 History [Alive Women's 50 Plus Tablet] Vitamin B Complex 1 each PO DAILY 05/30/21 10/16/22 History Ascorbic Acid [Vitamin C] 500 mg PO DAILY 10/16/22 10/16/22 History Metoprolol Succinate (ER) [Toprol 25 mg PO DAILY 10/16/22 10/16/22 History Xl] Osteo Supplement 1 tab PO DAILY 10/16/22 10/16/22 History Valsartan/Hydrochlorothiazide 1 each PO DAILY 10/16/22 10/16/22 History [Valsartan-Hctz 160-25 mg Tab] Zinc Gluconate [Zinc] 50 mg PO DAILY 10/16/22 10/16/22 History Aspirin 325 mg PO BID #60 tab 10/21/22 Rx HYDROcodone/APAP 7.5-325MG [[place] 1 - 2 tab PO Q6H PRN #32 tab 10/21/22 Rx 7.5-325] Sennosides [Senokot] 2 tab PO DAILY PRN #60 tablet 10/21/22 Rx Allergies Allergy/AdvReac Type Severity Reaction Status Date / Time BANDAIDES AdvReac Unknown Rash/Hives Uncoded 10/21/22 07:36 Physical Exam Vitals: Vital Signs Temp Pulse Pulse Resp BP Pulse Ox 10/21/22 12:34 97.6 F 78 17 109/66 10/21/22 11:48 78 16 105/57 100 10/21/22 11:33 58 L 16 105/56 100 10/21/22 11:18 75 18 108/60 100 10/21/22 11:03 51 L 17 104/59 100 10/21/22 10:48 66 18 98/64 93 L 10/21/22 10:33 52 L 16 96/55 99 10/21/22 10:18 57 L 18 92/55 99 10/21/22 10:00 97 F L 66 12 94/58 99 10/21/22 08:15 78 16 132/78 98 10/21/22 07:38 98.1 F 92 16 155/75 95 Intake and Output 10/20/22 10/21/22 10/21/22 22:59 06:59 14:59 Intake Total 1801 Output Total 300 Balance 1501 Intake: IV 1801 Output: Estimated Blood Loss 300 Other: Weight 85.6 kg
[2022-10-21] MEDS ORDERED: SENNOSIDES-DOCUSATE SODIUM 1 EACH TAB PO SCH (21:00)
[2022-10-21] MEDS: ASPIRIN 325 MG TAB PO SCH (21:40)
[2022-10-22] MEDS: HYDROcodone/APAP 7.5-325MG 1 EACH TAB PO PRN (00:10)
[2022-10-22 04:56] LABS: Basophils % (A) 0 %; Eosinophils % (A) 0 %; HCT 30.7 % (34.0-46.0); HGB 10.3 gm/dL (11.4-16.0); Lymphocytes # (A) 1.3 k/uL (1.0-4.8); Lymphocytes % (A) 16 %; MCH 28.6 pg (25.0-35.0); MCHC 33.4 g/dL (31.0-37.0); MCV 85.7 fL (80.0-100.0); Mean Platelet Volume 7.3; Monocytes # (A) 0.6 k/uL (0-1.0); Monocytes % (A) 7 %; Neutrophils # (A) 5.8 k/uL (1.3-7.7); Neutrophils % (A) 74 %; Platelet Count 197 k/uL (150-450); RBC 3.58 m/uL (3.80-5.40); RDW 12.9 % (11.5-15.5); WBC 7.8 k/uL (3.8-10.6)
[2022-10-22] MEDS: SODIUM CHLORIDE 0.9% 1,000 ML IV SCH (08:03)
[2022-10-22] MEDS: LACTATED RINGERS 1,000 ML IV SCH (08:04)
[2022-10-22 08:48] VITALS: BP 123/72; PULSE 79; RESP 16; TEMP 97.6
[2022-10-22] MEDS ORDERED: CHOLECALCIFEROL 25 MCG (1000 IU) TABLET PO SCH (09:00)
[2022-10-22] MEDS ORDERED: METOPROLOL SUCCINATE (ER) 25 MG TAB.ER.24H PO SCH (09:00)
[2022-10-22] MEDS ORDERED: ASCORBIC ACID 500 MG TAB PO SCH (09:00)
[2022-10-22] MEDS: ASPIRIN 325 MG TAB PO SCH (09:08)
--- NOTE | 2022-10-22 10:55 | P.DS ---
Providers Expected date of discharge: 10/22/22 Attending physician: Paolo York Consults: 10/21/22 07:53 Consult Physician Routine Consulting Provider: Jose Pollack Consult Reason/Comments: medical management Do you want consulting provider notified?: Yes Primary care physician: Drew Antunez - Discharge Diagnosis(es) (1) Primary osteoarthritis of right hip Current Visit: Yes Status: Acute (2) Status post right hip replacement Current Visit: Yes Status: Acute Hospital Course: This is a 62-year-old female with a known history of degenerative arthritis of the right hip. The patient presented to the orthopedic office for evaluation and treatment. After discussion and consideration the patient elects to proceed with a total hip arthroplasty. The patient was seen preoperatively by her primary care physician and cleared for surgery. The patient was admitted to [facility] on 10/21/2022 for a right direct anterior total hip arthroplasty. The procedure was performed without complication or sequelae. The patient is doing well postoperatively. Labs and vital signs are stable the day of discharge. On the day of discharge the patient's hip incision is healing well. There is minimal erythema. There is no drainage noted at this time. There is minimal soft tissue swelling to the hip and thigh. The patient has full foot and ankle motion without difficulty or pain. Neurovascular status to the right lower extremity is intact. The patient will be discharged home today in stable condition. Pertinent Studies: Laboratory Tests 10/22/22 03:34 WBC 7.8 RBC 3.58 L Hgb 10.3 L Hct 30.7 L Patient Condition at Discharge: Stable Plan - Discharge Summary Discharge Rx Participant: Yes New Discharge Prescriptions: New Aspirin 325 mg PO BID #60 tab HYDROcodone/APAP 7.5-325MG [[place] 7.5-325] 1 - 2 tab PO Q6H PRN #32 tab PRN Reason: Pain Sennosides [Senokot] 2 tab PO DAILY PRN #60 tablet PRN Reason: Constipation No Action Cholecalciferol [Vitamin D3 (25 Mcg = 1000 Iu)] 50 mcg PO DAILY Mv-Min/Folic/Vit [id number]/[id number] [Alive Women's 50 Plus Tablet] 1 each PO DAILY Zinc Gluconate [Zinc] 50 mg PO DAILY Valsartan/Hydrochlorothiazide [Valsartan-Hctz 160-25 mg Tab] 1 each PO DAILY Metoprolol Succinate (ER) [Toprol Xl] 25 mg PO DAILY Vitamin B Complex 1 each PO DAILY Ascorbic Acid [Vitamin C] 500 mg PO DAILY Osteo Supplement 1 tab PO DAILY Discharge Medication List Cholecalciferol [Vitamin D3 (25 Mcg = 1000 Iu)] 50 mcg PO DAILY 05/30/21 [History] Mv-Min/Folic/Vit [id number]/[id number] [Alive Women's 50 Plus Tablet] 1 each PO DAILY 05/30/21 [History] Vitamin B Complex 1 each PO DAILY 05/30/21 [History] Ascorbic Acid [Vitamin C] 500 mg PO DAILY 10/16/22 [History] Metoprolol Succinate (ER) [Toprol Xl] 25 mg PO DAILY 10/16/22 [History] Osteo Supplement 1 tab PO DAILY 10/16/22 [History] Valsartan/Hydrochlorothiazide [Valsartan-Hctz 160-25 mg Tab] 1 each PO DAILY 10/16/22 [History] Zinc Gluconate [Zinc] 50 mg PO DAILY 10/16/22 [History] Aspirin 325 mg PO BID #60 tab 10/21/22 [Rx] HYDROcodone/APAP 7.5-325MG [[place] 7.5-325] 1 - 2 tab PO Q6H PRN #32 tab 10/21/22 [Rx] Sennosides [Senokot] 2 tab PO DAILY PRN #60 tablet 10/21/22 [Rx] Follow up Appointment(s)/Referral(s): Drew Antunez MD [Primary Care Provider] - 10/29/22 11:30 am (With Gl[facility]) [facility]] - As Needed Paolo York DO [Doctor of Osteopathic Medicine] - 11/03/22 3:00 pm (with vidal) Activity/Diet/Wound Care/Special Instructions: Weightbearing as tolerated with walker. Leave dressing intact. Dressing may be removed by home care nurse or by patient in 7 days. Then change dressing twice daily until follow up. May shower with initial dressing intact and after removal. If dressing become saturated, please remove. Please take aspirin 325mg twice daily for 30 days to prevent blood clots. Recommend use of compression stockings daily until follow up to help prevent swelling and blood clots. May remove at night before sleeping. Please follow-up with [facility] in 2 weeks and call with any questions or concerns, . Discharge Disposition: HOME WITH HOME HEALTH SERVICES
--- NOTE | 2022-10-22 13:05 | P.PN ---
Subjective Progress Note Date: 10/22/22 patient is a 62-related past medical history significant for hypertension, atrial fibrillation, osteoarthritis who presented to the hospital for elective right hip total arthroplasty. Patient has been having this hip pain for the last few months, was being seen outpatient by orthopedic and when conservative measures failed, patient was scheduled for right hip arthroplasty. Patient was seen postoperatively for medical management. Currently patient is alert and oriented, maintaining conversation. Denies any chest pain or shortness of breath. Patient is hemodynamically stable, blood pressure of 109/66, respirations 17, heart rate of 78, the patient is afebrile. 10/22. Patient seen and examined. Vital signs stable. Patient medically stable for discharge REVIEW OF SYSTEMS: CONSTITUTIONAL: No fever, no malaise,. CARDIOVASCULAR: No chest pain, no palpitations, no syncope. PULMONARY: No shortness of breath, no cough, GASTROINTESTINAL: No diarrhea, no nausea, no vomiting, no abdominal pain. NEUROLOGICAL: No headaches, no weakness, PHYSICAL EXAMINATION: GENERAL: The patient is alert and oriented x3, not in any acute distress. Well developed, well nourished. HEENT: Pupils are round and equally reacting to light. EOMI. No scleral icterus. No conjunctival pallor. Normocephalic, atraumatic. No pharyngeal erythema. No thyromegaly. CARDIOVASCULAR: S1 and S2 present. No murmurs, rubs, or gallops. PULMONARY: Chest is clear to auscultation, no wheezing or crackles. ABDOMEN: Soft, nontender, nondistended, normoactive bowel sounds. No palpable organomegaly. MUSCULOSKELETAL: No joint swelling or deformity. EXTREMITIES: No cyanosis, clubbing, or pedal edema. NEUROLOGICAL: Gross neurological examination did not reveal any focal deficits. SKIN: No rashes. Assessment and plan Status post right hip total arthroplasty Hypertension Atrial fibrillation Plan; Monitor vital signs monitor CBC Continue pain management per orthopedics Continue DVT prophylaxis per orthopedics Patient medically stable for discharge Objective - Vital Signs Vital signs: Vital Signs Temp 97.6 F 10/22/22 08:00 Pulse 79 10/22/22 09:08 Resp 16 10/22/22 09:08 BP 123/72 10/22/22 08:00 Pulse Ox 97 10/22/22 08:00 FiO2 Intake & Output 10/21/22 10/22/22 10/22/22 18:59 06:59 18:59 Intake Total 1801 Output Total 300 Balance 1501 Weight 85.6 kg Intake: IV 1801 Output: Estimated Blood Loss 300 Other: # Voids 1 1 - Labs CBC & Chem 7: 10/22/22 03:34 Labs: Abnormal Lab Results - Last 24 Hours (Table) 10/22/22 Range/Units 03:34 RBC 3.58 L (3.80-5.40) m/uL Hgb 10.3 L (11.4-16.0) gm/dL Hct 30.7 L (34.0-46.0) %
== END 2022-10-22 13:13 | disposition home health service (06) ==
LOC: OR 07:22 → 4SSUR 10:03 → OR 10-22 13:13
PROVIDERS: ATTEND Orthopaedic Surgery
DX: M16.11 Unilateral primary osteoarthritis, right hip (principal); G89.18 Other acute postprocedural pain; I10 Essential (primary) hypertension; I48.91 Unspecified atrial fibrillation; Z79.891 Long term (current) use of opiate analgesic; Z98.51 Tubal ligation status; Z98.890 Other specified postprocedural states; F10.20 Alcohol dependence, uncomplicated; Z82.49 Family history of ischemic heart disease and other diseases of the circulatory system
CPT/HCPCS: 27130; 97161; 97535; 97166; 64447; 76942; 86900; 86901; 85025; 86850; 88300; 87070; 73501; C1776; J2250; J1100; J0690 ×3; J2405; J3010; J2795; J2370; J2704; J1170

== ENCOUNTER → 2024-01-08 | Outpatient (CLI) | payer BC ==
[2024-01-08 16:04] LABS: INR 0.9 (<1.2); Partial Thromboplastin Time 27.1 sec (22.0-30.0)
[2024-01-08 18:47] LABS: Basophils # (A) 0.05 X 10*3/uL (0.00-0.10); Basophils % (A) 0.5 %; Eosinophils # (A) 0.22 X 10*3/uL (0.04-0.35); Eosinophils % (A) 2.3 %; HCT 39.3 % (37.2-46.3); HGB 12.8 g/dL (12.0-15.0); Lymphocytes # (A) 2.08 X 10*3/uL (0.90-5.00); Lymphocytes % (A) 22.1 %; MCHC 32.6 g/dL (32.0-37.0); MCV 89.1 FL (80.0-97.0); Mean Platelet Volume 10.1 FL (9.5-12.2); Monocytes % (A) 8.5 %; NRBC Per 100 WBC 0 X 10*3/uL (0.00-0.01); Neutrophils # (A) 6.24 X 10*3/uL (1.80-7.70); Neutrophils % (A) 66.2 %; Platelet Count 236 X 10*3/uL (140-440); RBC 4.41 X 10*6/uL (4.10-5.20); RDW 13.6 % (11.5-14.5); WBC 9.43 X 10*3/uL (4.50-10.00)
[2024-01-08 19:32] LABS: ALT 15 U/L (8-44); AST 23 U/L (13-35); Albumin 4.6 g/dL (3.8-4.9); Alkaline Phosphatase 83 U/L (41-126); Blood Urea Nitrogen 17.8 mg/dL (9.0-27.0); Calcium 9.8 mg/dL (8.7-10.3); Carbon Dioxide 24.5 mmol/L (21.6-31.8); Chloride 104 mmol/L (96-109); Globulin 2.3 g/dL (1.6-3.3); Glucose 99 mg/dL (70-110); Potassium 4.2 mmol/L (3.5-5.5); Sodium 141 mmol/L (135-145); Total Bilirubin 0.4 mg/dL (0.3-1.2); Total Protein 6.9 g/dL (6.2-8.2)
== END | disposition home or self-care (01) ==
LOC: LABPAT 15:03
PROVIDERS: ATTEND Orthopaedic Surgery
DX: Z01.818 Encounter for other preprocedural examination (principal); Z22.322 Carrier or suspected carrier of Methicillin resistant Staphylococcus aureus
CPT/HCPCS: 36415; 80053; 85025; 85610; 85730; 86850; 86900; 86901; 87070; 93005

== ENCOUNTER 2024-01-19 07:35 | Observation (INO) | payer BC ==
[~2024-01-19 07:35] MED LIST changes: -ACETAMINOPHEN TAB 500 MG TAB PO PRN; -DEXAMETHASONE SOD PHOSPHATE 4 MG/ML 1 ML VIAL IV ONE; -GABAPENTIN 300 MG CAP PO PRN; -MELOXICAM 7.5 MG TAB PO PRN; -ONDANSETRON 4 MG/2 ML VIAL IVP ONE; +TRANEXAMIC 1,000 MG/100ML-NACL 1,000 MG in SALINE 1 100ML.BAG IVPB PRN; -TRANEXAMIC ACID IN NACL,ISO-OS 1,000 MG in SALINE 1 100ML.BAG IVPB PRN
[2024-01-19] MEDS ORDERED: ONDANSETRON 4 MG/2 ML VIAL ONE (08:09)
[2024-01-19] MEDS: DEXAMETHASONE SOD PHOSPHATE 4 MG/ML 1 ML VIAL IV ONE (08:11)
[2024-01-19] MEDS: ONDANSETRON 4 MG/2 ML VIAL IVP ONE (08:11)
[2024-01-19] MEDS: MELOXICAM 7.5 MG TAB PO PRN (08:11)
[2024-01-19] MEDS: ACETAMINOPHEN TAB 500 MG TAB PO PRN (08:11)
[2024-01-19] MEDS: GABAPENTIN 300 MG CAP PO PRN (08:11)
[2024-01-19] MEDS: MIDAZOLAM 2 MG/2 ML VIAL IVP ONE (08:26)
--- NOTE | 2024-01-19 08:39 | P.ANPRN ---
Procedure Note - Anesthesia - Nerve Block Performed Left Hank Single Date of Procedure: 01/19/24 Procedure Start Time: Procedure Stop Time: Indication: Acute Post-Operative Pain, Requested by Surgeon Sedation Type: Sedate with meaningful contact maintained Preparation: Sterile Prep Position: Supine Catheter: None Needle Types: Facet Needle Gauge: 20 Ultrasound used to visualize needle placement: Yes Ultrasound used to observe medication spread: Yes Injectate: 0.5% Ropivacaine (see comment for volume) (20 mls with 5 mg of Decadron) Blood Aspirated: No Pain Paresthesia on Injection Noted: No Resistance on Injection: Normal Image Stored and Saved: Yes Events: Uneventful and Well Tolerated
[2024-01-19] MEDS: LACTATED RINGERS 1,000 ML IV SCH (09:08)
[2024-01-19] MEDS ORDERED: PROPOFOL 10 MG/ML 20 ML VIAL IV ONE ×2 (09:14→14:02)
[2024-01-19] MEDS ORDERED: ROPIVACAINE 5 MG/ML 30 ML VIAL ONE (09:14)
[2024-01-19] MEDS ORDERED: MIDAZOLAM 2 MG/2 ML VIAL ONE (09:14)
[2024-01-19] MEDS ORDERED: fentaNYL (PF) 50 MCG/ML 2 ML AMP ONE ×2 (09:14→14:02)
[2024-01-19] MEDS ORDERED: DEXAMETHASONE SOD PHOSPHATE 4 MG/ML 1 ML VIAL ONE (09:14)
[2024-01-19] MEDS ORDERED: TRANEXAMIC 1,000 MG/100ML-NACL PREMIX BAG ONE (09:14)
[2024-01-19] MEDS ORDERED: SODIUM CHLORIDE 0.9% (PF) 10 ML VIAL ONE (09:14)
[2024-01-19] MEDS ORDERED: KETAMINE HCL IN 0.9 % NACL 50 MG/5 ML SYRINGE ONE (09:14)
[2024-01-19] MEDS: ROPIVACAINE 5 MG/ML 30 ML VIAL MISCELLANE ONE ×2 (09:55→10:30)
[2024-01-19] MEDS: ceFAZolin 1,000 MG in SODIUM CHLORIDE 0.9% 1,000 ML IRRIGATION ONE ×2 (09:56→14:23)
[2024-01-19] MEDS: LACTATED RINGERS 1,000 ML IV ONE ×2 (10:00→14:44)
--- NOTE | 2024-01-19 10:40 | P.OP ---
Date of Procedure: 01/19/24 Preoperative Diagnosis: severe osteoarthritis left hip Postoperative Diagnosis: severe osteoarthritis left hip Procedure(s) Performed: left total hip arthroplasty with a direct anterior approach Implants: [employer] Polarstem standard size 3 with a collar [employer] R3, 3 hole hemispherical acetabular shell, 50 mm [employer] Reflection 6.5 mm cancellus screw, 25 mm 2 [employer] R3, XLPE 20 acetabular liner [employer] Oxinium femoral head 36 mm, +0 All components were press-fit. The articulation is Oxinium on polyethylene. Anesthesia: spinal Surgeon: Paolo York Drawing In Machine Tender Helper #1: Dany Mcadams Estimated Blood Loss (ml): 500 Pathology: none sent Condition: stable Disposition: PACU Indications for Procedure: After failure of conservative treatment we discussed the surgical and nonsurgical treatment options at length. Patient wishes to proceed with a total hip arthroplasty with a direct anterior approach. Complications specific to this procedure were discussed at length, including but not limited to infection, leg length discrepancy, dislocation, nerve injury, and fracture. Covid-19 was also discussed at length with the patient, and they are aware of the current policies and procedures. The patient was given the option of delaying surgery, but they elect to proceed knowing these risks. Patient is aware of all these complications and informed consent was obtained Operative Findings: the operative findings are consistent with severe osteoarthritis of the left hip Description of Procedure: The patient was seen and evaluated in the preoperative area and the consent was reviewed. The operative site was marked with a skin marker. The patient verified the procedure and operative site. A MIKE block [facility] preoperative area. The patient was then brought to the operating room and given preoperative antibiotics intravenously. 1 g of Tranexamic acid was also given intravenously. A spinal anesthetic was administered by the anesthesia department. The patient was then placed on the [place] table with the bony prominences well-padded. The hip area was then prepped with a ChloraPrep solution and draped in the usual sterile fashion. A universal timeout was then performed, which confirmed the patient's name, surgical site, ALLERGIES, and procedure being performed on the consent. Next the incision site was located at 1 cm distal and 4 cm lateral to the anterior superior iliac spine. The skin and subcutaneous tissues were sharply incised. Incision was carefully dissected down to the fascia overlying the tensor fascia leon muscle. This fascia was then incised in line with the muscle fibers. Care was taken to stay laterally in order to avoid injuring the lateral femoral cutaneous nerve. Next, using blunt finger dissection, the tensor fascia leon muscle was dissected off its investing fascia. The muscle was then carefully retracted laterally with a cobra retractor over the lateral neck of the femur. Next, the circumflex vessels were identified and cauterized using the Aquamantis device. The anterior hip capsule was then exposed. The capsule was then opened and an inverted T fashion. The retractors were then placed intracapsularly. The retractors were maintained intracapsular throughout the procedure. The proximal femur was then visualized. Fluoroscopic x-rays were then taken in order to evaluate the preoperative leg lengths. A small amount of traction was placed on the leg. The femoral neck was then osteotomized at the appropriate level above the lesser trochanter. A small wedge of bone was then removed from the remaining femoral head. Next, using a corkscrew the femoral head was removed from the acetabulum. On gross visual inspection, the femoral head had complete loss of articular cartilage and multiple periarticular osteophytes. The femoral head was then measured. Attention was then turned to the acetabulum. The acetabulum was exposed and any remaining labrum was excised. Sequential reaming of the acetabulum was performed using fluoroscopic guidance until there was a good bed of bleeding cancellus bone. When the appropriate size was reached, a trial was then placed. The position and fit of the trial was checked with fluoroscopy. The trial was then removed. Then, using fluoroscopic guidance, the final implant was impacted at 20 of anteversion and 40 of abduction, and fully seated in the acetabulum. 2 screws were then placed in the acetabulum. Again fluoroscopy was used to check position of the screws. Next, the liner was then impacted, with a 20 elevated liner located in the anterior superior quadrant. Component locking was confirmed. Attention was then directed to the femur. With the aid of the Reddell table, the femur was externally rotated to approximately 130, extended, and adducted under the opposite leg. A side hook was then placed under the proximal femur, and the side hook elevator was used to elevate the proximal femur while releasing the capsule. Retractors were then placed. A capsular release was performed, as well as a release of the conjoined tendon, which afforded excellent visualiza tion of the proximal femur. Next, a box osteotome was used to lateralize the proximal femur. A broom handle dipper was then used to locate the femoral canal. Sequential broaching was then performed with appropriate size which afforded excellent fixation in the proximal femur. A trial was then placed with appropriate head and neck, and the hip was gently reduced with the aid of the Reddell table. Fluoroscopy was then used to check position of the components, as well as to evaluate the leg lengths and offset. The leg lengths and offset were measured as closely as possible to ensure stability of the hip. The hip was then gently dislocated and the trials were then removed. Final implants were then impacted and the hip was again reduced. Final fluoroscopic x-rays confirmed that the components were in anatomic position. The leg lengths and offset were measured and were found to coincide with the trial measurements. The hip was also taken through range of motion, and found to be stable. The hip was then copiously irrigated with antibiotic solution with pulsatile lavage. The hip was then irrigated with Irrisept solution. The soft tissues were then injected with a ropivacaine solution. A second dose of 1 g of Tranexamic acid was also given intravenously. The fascia was then closed with 2-0 strata fix suture. The subcutaneous tissue was closed with 3-0 Vicryl. The subcuticular tissue was closed with 3-0 strata fix suture. The skin was then closed with Exofin skin glue. After the glue and dried, and Optifoam silver impregnated dressing was applied. The patient was then transferred to the recovery room in stable condition. The corporate law assistant LATOYA Keen was required due to the complexity of surgery, and the need for skilled certified surgical first assistant for positioning, draping, exposure, retraction, and closure of the wound.
--- NOTE | 2024-01-19 11:02 | FL ---
EXAMINATION TYPE: FL guidance operating room, XR Hip Limited LT Intraoperative/procedural fluoroscopi c services were provided. Total fluoroscopy time is 25.9 seconds with a total of 3 submitted images t o PACS. Please see the operative/procedural note for further details. DAP: 1.0144 Gycm2
[2024-01-19] MEDS ORDERED: HYDROmorphone 1 MG/ML 1 ML SYRINGE IVP PRN (11:27)
[2024-01-19] MEDS ORDERED: MAGNESIUM HYDROXIDE 2,400 MG/30 ML CUP PO PRN (11:27)
[2024-01-19] MEDS ORDERED: NALOXONE 0.4 MG/ML 1 ML VIAL IV PRN (11:27)
[2024-01-19] MEDS ORDERED: HYDROmorphone 0.5 MG/0.5 ML SYRINGE IVP PRN (11:27)
[2024-01-19] MEDS ORDERED: HYDROcodone/APAP 5-325MG 1 EACH TAB PO PRN (11:27)
--- NOTE | 2024-01-19 12:28 | XR ---
EXAMINATION TYPE: XR Hip Limited LT DATE OF EXAM: 01/19/2024 Comparison: Intraoperative fluoroscopy 01/19/2024 Clinical History: 63-year-old female Status post hip surgery, assess surgical alignment Findings: There is superior dislocation of the left total hip thoracoplasty. Both acetabular cup and femoral st em components appear well seated. Some soft tissue air related to recent operation. No acute fracture seen. Impression: Postoperative left hip complicated by superior prosthetic dislocation.
[2024-01-19] MEDS: HYDROmorphone 0.5 MG/0.5 ML SYRINGE IVP PRN (12:31)
--- NOTE | 2024-01-19 13:22 | P.PN ---
Progress Note - Text Progress Note Date: 01/19/24 The patient was evaluated in the postoperative area. The postoperative x-ray from the post anesthesia care unit showed that her left hip was dislocated. After reviewing the x-ray and discussing this with the patient and her , I recommended a return to the operating room with a closed or possible open reduction of the dislocation. I discussed the possibilities of what has caused the dislocation, which at this time is unclear. At the time of final implantation, the hip was very stable and the leg lengths and offset were appropriate. It is possible that there was a small amount of soft tissue interposed between the femoral head in the acetabulum which led to the dislocation. This will be inspected at the time of the open reduction. They understand what is happening, and informed consent was obtained.
[2024-01-19] MEDS ORDERED: SUCCINYLCHOLINE CHLORIDE 200 MG/10 ML VIAL IV ONE (14:02)
[2024-01-19] MEDS ORDERED: HYDROmorphone (PF) 1 MG/ML ONE (14:02)
[2024-01-19] MEDS ORDERED: LIDOCAINE 1% INJ 10MG/ML (20 ML MDV) ONE (14:02)
[2024-01-19] MEDS: SODIUM CHLORIDE 0.9% 1,000 ML IV ONE (14:02)
[2024-01-19] MEDS ORDERED: ePHEDrine 50 MG/ML 1 ML VIAL ONE (14:02)
[2024-01-19] MEDS: SODIUM CHLORIDE 0.9% 50 ML with ceFAZolin 2,000 MG IV ONE (14:20)
--- NOTE | 2024-01-19 14:59 | P.OP ---
Date of Procedure: 01/19/24 Preoperative Diagnosis: Dislocation left total hip arthroplasty. Postoperative Diagnosis: Dislocation left total hip arthroplasty Procedure(s) Performed: Revision left total hip arthroplasty with open reduction Implants: [employer] OR30, 38 mm ID, 50 mm OD, Oxinium dual mobility liner [employer] OR30, 22 mm ID, 38 mm OD, XLPE Dual mobility insert [employer] Oxinium femoral head 22 m, +0 The articulation is Oxinium on polyethylene. Anesthesia: GETA Surgeon: Paolo York Cyber Incident Analyst #1: Dany Mcadams Estimated Blood Loss (ml): 150 Pathology: none sent Condition: stable Disposition: PACU Indications for Procedure: This is a 63-year-old female that had a left total hip arthroplasty with a direct anterior approach earlier today. Her intraoperative x-rays show a reduction of her left total hip arthroplasty at the end of surgery well placed with good lutheran of leg lengths and offset. Patient had a routine postoperative x-ray in the recovery room, which demonstrated dislocation of the total hip arthroplasty. After discussing this with the patient and her at length, I recommended open reduction and possible revision of her left total hip arthroplasty and informed consent was obtained Operative Findings: The operative findings are consistent with a dislocated left total hip arthroplasty. Because of the dislocation could not be readily identified, so that articulation was exchanged to a dual mobility insert to increase stability of the hip. Description of Procedure: The patient was seen and evaluated in the preoperative area and the consent was reviewed. The operative site was marked with a skin marker. The patient verified the procedure and operative site. A MIKE block was placed by anesthesia in the preoperative area. The patient was then brought to the operating room and given preoperative antibiotics intravenously. 1 g of Tranexamic acid was also given intravenousl. A general anesthetic was administered by the anesthesia department. The patient was then placed on the [place]heson table with the bony prominences well-padded. The hip area was then prepped with a ChloraPrep solution and draped in the usual sterile fashion. A universal timeout was then performed, which confirmed the patient's name, surgical site, ALLERGIES, and procedure being performed on the consent. Next the incision site was located at 1 cm distal and 4 cm lateral to the anterior superior iliac spine, the prior incision was utilized. The skin and subcutaneous tissues were sharply incised. Incision was carefully dissected down to the fascia overlying the tensor fascia leon muscle. This fascia was then incised in line with the muscle fibers. Care was taken to stay laterally in order to avoid injuring the lateral femoral cutaneous nerve. Next, using blunt finger dissection, the tensor fascia leon muscle was dissected off its investing fascia. The muscle was then carefully retracted laterally with a cobr a retractor over the lateral neck of the femur. The hip was then readily visualized, and it demonstrated a superior anterior dislocation. The hip was then gently reduced and fluoroscopic x-rays were obtained. The hip appeared to be reduced in good position alignment, as well as equal leg lengths and offset. Hip was taken through full range of motion while trying to dislocate the hip and the hip was found to be entirely stable. Because no identifiable whole reason for the dislocation could be found, it was decided at that time to exchange to a dual mobility construct in order to increase stability. The proximal femur was exposed and the femoral head was removed from the trunnion without difficulty. The acetabulum was exposed and The acetabular polyethylene liner was removed without incident. The appropriate-sized dual mobility liner was then impacted into the acetabular component with component locking being confirmed.. Attention was then directed to the femur. The proximal femur was exposed, and a dual mobility trial was then placed with appropriate head and neck, and the hip was gently reduced with the aid of the Matheson table. Fluoroscopy was then used to check position of the components, as well as to evaluate the leg lengths and offset. The leg lengths and offset were measured as closely as possible to ensure stability of the hip. The hip was then gently dislocated and the trials were then removed. Final implants were then impacted and the hip was again reduced. Final fluoroscopic x-rays confirmed that the components were in anatomic position. The leg lengths and offset were measured and were found to coincide with the trial measurements. The hip was also taken through range of motion, and found to be stable. The hip was then copiously irrigated with antibiotic solution with pulsatile lavage. The hip was then irrigated with Irrisept solution. The fascia was then closed with 2-0 strata fix suture. The subcutaneous tissue was closed with 3-0 Vicryl. The subcuticular tissue was closed with 3-0 strata fix suture. The skin was then closed with Exofin skin glue. After the glue and dried, and Optifoam silver impregnated dressing was applied. The patient was then transferred to the recovery room in stable condition. The assistant women's basketball coach LATOYA Keen was required due to the complexity of surgery, and the need for skilled surgical scrub technician for positioning, draping, exposure, retraction, and closure of the wound.
--- NOTE | 2024-01-19 15:15 | FL ---
EXAMINATION TYPE: FL guidance operating room, XR Hip Limited LT Intraoperative/procedural fluoroscopi c services were provided. Total fluoroscopy time is 33 seconds with a total of 2 submitted images to PACS. Please see the operative/procedural note for further details. DAP: 1.5150 mGym2 Gycm2 uGym2 cGycm2
--- NOTE | 2024-01-19 16:20 | XR ---
EXAMINATION TYPE: XR Hip Limited LT DATE OF EXAM: 01/19/2024 COMPARISON: 01/19/2024 earlier exam HISTORY: Dislocation TECHNIQUE: AP left hip FINDINGS: Left femoral prosthesis is present. Femoral head appears to articulate with the acetabular component. Postsurgical soft tissue changes are present. No acute fractures or dislocations. IMPRESSION: 1. Reduction of previous dislocated prosthesis. No acute fractures are evident
[2024-01-19] MEDS: HYDROcodone/APAP 5-325MG 1 EACH TAB PO PRN (18:03)
[2024-01-19] MEDS ORDERED: polyethylene glycoL 3350 17 GM POWD.PACK PO PRN (18:13)
[2024-01-19] MEDS: SENNOSIDES-DOCUSATE SODIUM 1 EACH TAB PO SCH (20:57)
[2024-01-19] MEDS: SODIUM CHLORIDE 0.9% 1,000 ML IV SCH (20:58)
[2024-01-19] MEDS: ONDANSETRON 4 MG TAB PO PRN (21:11)
[2024-01-19] MEDS: hydroCHLOROthiazide 25 MG TAB PO SCH (21:16)
[2024-01-19] MEDS: DOXYCYCLINE 100 MG CAP PO SCH (23:03)
[2024-01-19] MEDS: VALSARTAN 160 MG TAB PO SCH (23:03)
--- NOTE | 2024-01-19 23:07 | P.CONS ---
History of Present Illness - Reason for Consult Consult date: 01/19/24 Medical management Requesting physician: Paolo York - Chief Complaint Left total hip arthroplasty - History of Present Illness HISTORY OF PRESENT ILLNESS: 63-year-old one of my office patient with past medical history of hypertension, history of A-fib with RVR postsurgery in the past, history of hyperlipidemia, history of spinal stenosis and lower back pain postsurgery, chronic history of tinnitus,Mild iron deficiency anemia, and mild hyperglycemia who had lumbar spine surgery back in June 2021 and ended up having right total hip arthroplasty back in October 2022 has been suffering from increased pain and arthritis of the left hip for the last year become much worse lately she has been limping and restricting her activity quite a bit. She returned to see Dr. York been found to have advanced arthritis of the left hip scheduled for elective total hip arthroplasty, the week before her surgery developed to have q uite with URI with bronchitis and was giving an antibiotic along with decongestant felt much better was kept on doxycycline still before coming to the hospital this time. Patient ended up having left total hip arthroplasty and in the recovery room found to have dislocation of the left hip ended up having to go back for revision left total hip arthroplasty with open reduction. She was admitted to the hospital after second surgery successfully still having slight back pain and discomfort but hemodynamically stable. REVIEW OF SYSTEMS: CONSTITUTIONAL: Well-developed no acute respiratory distress. EYES: No icterus sclerae, no conjunctivitis. EARS, NOSE, MOUTH, THROAT, and FACE: No sore throat, lymphadenopathy, carotid bruits or deformity. RESPIRATORY: No SOB cough or wheezes. CARDIOVASCULAR: No CP, Palpitation, PND, Orthopnea, or angina. GASTROINTESTINAL: No Abd pain, Nausea or vomiting, no Diarrhea or constipation, No GI Bleed, no distention or masses. GENITOURINARY: Negative for Hematuria or UTI, no kidney stones. INTEGUMENT/BREAST: Negative for any muscular injury with mild osteoarthritis.. HEMATOLOGIC/LYMPHATIC: Negative for bleed or purpura. Mild anemia MUSCULOSKELTAL: Slight pain and discomfort in the left hip area. NEURLOGICAL: No LOC, Sz or syncope, blurred vision dizziness or abnormality.. BEHAVIORAL/PSYCH: Negative. ENDOCRINE: Negative. PHYSICAL EXAMINATION: General Appearance: Alert, cooperative, no distress, appears stated age. Neck HEENT: Supple, no lymphadenopathy, no thyroid enlargement, no carotid bruits. Lungs: Clear to auscultation without crackles or wheezes no rhonchi, no deformity. Chest Wall: Chest wall normal expansion with deep inspiration no tenderness and no deformity was found on exam, no costochondral pain or discomfort. Heart: Regular rate and rhythm, S1, S2 normal, no murmur, rub or gallop. Back: Symmetric, no curvature, ROM normal, no CVA tenderness. Abdomen: Soft, non-tender, bowel sounds active all four quadrants, no masses, no organomegaly. Extremities: Incision in the left hip anterior approach with slight bruise in the back of her incision site. Pulses: 2+ and symmetric. Skin: Skin color, texture, tugor normal, no rashes or lesions. Neurologic: Alert oriented x3 cranial nerves II through XII intact, no motor deficit, no abnormal balance or gait. ASSESSMENT AND PLAN: _Post left total hip arthroplasty with dislocation and revision arthroplasty altogether within few hours, admit patient to the floor, continue to control pain, resume home meds and continue to watch patient hemodynamic status. _History of hypertension: Remain on valsartan/HCTZ 160/25 mg along with metoprolol succinate 25 mg daily continue medication. _History of A-fib with RVR post her back surgery 2 years ago patient has not had any further A-fib since did not require to be on any anticoagulation but remain on metoprolol with pulse rates under control. _Chronic constipation: Has been on the stool softener and MiraLAX doing very well. _Recent history of URI with bronchitis. On doxycycline which will resume for few more days. _DVT prophylaxis:Will be mostly on aspirin postsurgery. _GI prophylaxis: Continue patient on Pepcid 20 mg daily. _Pain control management: Continue hydromorphone for the night and continue hydrocodone orally on as-needed basis. CODE STATUS: Full code. Dr York thank you much for the consult if I can be any further help to please let me know. 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 History of Any Multi-Drug Resistant Organisms: None Reported Past Surgical History: Back Surgery, Cholecystectomy, Hysterectomy, Joint Replacement, Tubal Ligation Additional Past Surgical History / Comment(s): FOOT SURGERY (DR CANTU), HEMORRHOIDECTOMY, COLONOSCOPY cataract surgery rt hip replaced Past Anesthesia/Blood Transfusion Reactions: Previous Problems w/ Anesthesia, Motion Sickness, Postoperative Nausea & Vomiting (PONV) Additional Past Anesthesia/Blood Transfusion Reaction / Comm: MOTHER = ponv Smoking Status: Never smoker - Past Family History Mother Family Medical History: No Reported History Brother(s) Additional Family Medical History / Comment(s): KIDNEY REMOVED-UNSURE REASON Medications and Allergies Home Medications Medication Instructions Recorded Confirmed Type Cholecalciferol [Vitamin D3 (25 50 mcg PO DAILY 05/30/21 01/13/24 History Mcg = 1000 Iu)] Mv-Min/Folic/Vit K/Lut/Scdd663 1 each PO DAILY 05/30/21 01/13/24 History [Alive Women's 50 Plus Tablet] Vitamin B Complex 1 each PO DAILY 05/30/21 01/13/24 History Ascorbic Acid [Vitamin C] 500 mg PO DAILY 10/16/22 01/13/24 History Metoprolol Succinate (ER) [Toprol 25 mg PO DAILY 10/16/22 01/13/24 History Xl] Osteo Supplement 1 tab PO DAILY 10/16/22 01/13/24 History Valsartan/Hydrochlorothiazide 1 each PO BID 10/16/22 01/13/24 History [Valsartan-Hctz 160-25 mg Tab] Zinc Gluconate [Zinc] 50 mg PO DAILY 10/16/22 01/13/24 History Doxycycline Hyclate 100 mg PO BID 01/13/24 01/19/24 History polyethylene glycoL 3350 [Miralax] 1 packet PO DAILY PRN 01/13/24 01/19/24 History Aspirin 325 mg PO BID #60 tab 01/19/24 Rx HYDROcodone/APAP 7.5-325MG [[place] 1 each PO Q6HR PRN #28 tab 01/19/24 Rx 7.5-325] Ondansetron [Zofran] 4 mg PO Q6HR PRN #30 tab 01/19/24 Rx Sennosides-Docusate Sodium 1 tab PO BID PRN #60 tablet 01/19/24 Rx [Senokot-S] Allergies Allergy/AdvReac Type Severity Reaction Status Date / Time BANDAIDES AdvReac Unknown Rash/Hives Uncoded 01/19/24 07:53 Physical Exam Vitals: Vital Signs Temp Pulse Pulse Resp BP Pulse Ox 01/19/24 16:41 97.3 F L 79 20 143/81 98 01/19/24 16:15 76 17 144/72 99 01/19/24 15:57 78 15 138/65 98 01/19/24 15:42 81 15 139/62 100 01/19/24 15:27 97 F L 87 14 146/67 100 01/19/24 13:45 68 16 145/70 98 01/19/24 13:30 68 16 155/78 98 01/19/24 13:21 65 16 137/76 98 01/19/24 13:00 68 16 138/79 98 01/19/24 12:45 68 16 138/79 98 01/19/24 12:30 72 16 139/75 98 01/19/24 12:21 78 15 153/80 98 01/19/24 12:06 72 14 139/70 98 01/19/24 11:51 64 18 156/73 100 01/19/24 11:36 138/82 01/19/24 11:32 63 16 89/50 99 01/19/24 11:16 96.8 F L 67 16 94/51 99 01/19/24 08:45 69 16 124/77 96 01/19/24 08:23 72 16 133/76 97 01/19/24 08:03 98.0 F 91 16 159/77 95 Intake and Output 01/19/24 01/19/24 01/19/24 06:59 14:59 22:59 Intake Total 2202 400 Output Total 650 Balance 1552 400 Intake: IV 2202 400 Output: Estimated Blood Loss 650 Other: Weight 82.8 kg
[2024-01-20] MEDS: FAMOTIDINE 20 MG TAB PO SCH (08:25)
[2024-01-20] MEDS: CHOLECALCIFEROL 25 MCG (1000 IU) TABLET PO SCH (08:25)
[2024-01-20] MEDS: METOPROLOL SUCCINATE (ER) 25 MG TAB.ER.24H PO SCH (08:25)
[2024-01-20] MEDS: MULTIVITAMINS, THERA 1 EACH TAB PO SCH (08:25)
[2024-01-20] MEDS: ASPIRIN 325 MG TAB PO SCH (08:25)
[2024-01-20 08:57] LABS: Basophils # (A) 0.02 X 10*3/uL (0.00-0.10); Basophils % (A) 0.1 %; Eosinophils # (A) 0.01 X 10*3/uL (0.04-0.35); Eosinophils % (A) 0.1 %; HCT 29.2 % (37.2-46.3); HGB 9.7 g/dL (12.0-15.0); Lymphocytes # (A) 1.67 X 10*3/uL (0.90-5.00); Lymphocytes % (A) 10.4 %; MCH 29.9 pg (27.0-32.0); MCHC 33.2 g/dL (32.0-37.0); MCV 90.1 FL (80.0-97.0); Mean Platelet Volume 9.9 FL (9.5-12.2); Monocytes # (A) 1.26 X 10*3/uL (0.20-1.00); Monocytes % (A) 7.8 %; NRBC Per 100 WBC 0 X 10*3/uL (0.00-0.01); Neutrophils # (A) 13.06 X 10*3/uL (1.80-7.70); Platelet Count 245 X 10*3/uL (140-440); RBC 3.24 X 10*6/uL (4.10-5.20); RDW 13.6 % (11.5-14.5); WBC 16.12 X 10*3/uL (4.50-10.00)
[2024-01-20] MEDS ORDERED: [UNRECOGNIZED DRUG - OTHER] PO SCH (09:00)
[2024-01-20] MEDS ORDERED: NON FORMULARY DRUG (Vitamin B Complex [Vitamin B Complex] 1 EACH Capsule) PO SCH (09:00)
--- NOTE | 2024-01-20 09:28 | P.PN ---
Subjective Progress Note Date: 01/20/24 Principal diagnosis: Degenerative arthritis left hip. Status post total left hip with subsequent dislocation and revision. This is a 63-year-old female who is postop day #1 status post total left hip arthroplasty with subsequent dislocation in recovery room. She then underwent a revision of the acetabular component of the hip. She had a syncopal episode in the bathroom last evening. She is having no new complaints this morning. Vital signs are stable. Objective - Vital Signs Vital signs: Vital Signs Temp 98.5 F 01/20/24 06:45 Pulse 98 01/20/24 08:19 Resp 16 01/20/24 06:45 BP 109/67 01/20/24 08:19 Pulse Ox 97 01/20/24 08:19 FiO2 Intake & Output 01/19/24 01/20/24 01/20/24 18:59 06:59 18:59 Intake Total 2602 Output Total 650 700 Balance 1952 -700 Weight 82.8 kg Intake: IV 2602 Output: Emesis 700 Estimated Blood Loss 650 Other: # Voids 1 1 - Exam This is a pleasant 63-year-old female in no acute distress. She is alert and oriented x 3. Exam of the left hip reveals that her dressing is clean, dry and intact. She has full foot and ankle motion without difficulty or pain. Neurovascular status to the lower extremities intact. - Labs CBC & Chem 7: 01/20/24 06:03 Labs: Abnormal Lab Results - Last 24 Hours (Table) 01/20/24 Range/Units 06:03 WBC 16.12 H (4.50-10.00) X 10*3/uL RBC 3.24 L (4.10-5.20) X 10*6/uL Hgb 9.7 L (12.0-15.0) g/dL Hct 29.2 L (37.2-46.3) % Immature Gran # 0.10 H (0.00-0.04) X 10*3/uL Neutrophils # 13.06 H (1.80-7.70) X 10*3/uL Monocytes # 1.26 H (0.20-1.00) X 10*3/uL Eosinophils # 0.01 L (0.04-0.35) X 10*3/uL Assessment and Plan (1) Hip dislocation, right Current Visit: Yes Status: Acute Code(s): S73.004A - UNSPECIFIED DISLOCATION OF RIGHT HIP, INITIAL ENCOUNTER SNOMED Code(s): 082174215 (2) Status post revision of total hip replacement Current Visit: Yes Status: Acute Code(s): Z96.649 - PRESENCE OF UNSPECIFIED ARTIFICIAL HIP JOINT SNOMED Code(s): 503759789 (3) Osteoarthritis of left hip Current Visit: Yes Status: Acute Code(s): M16.12 - UNILATERAL PRIMARY OST EOARTHRITIS, LEFT HIP SNOMED Code(s): 375118292913893 (4) S/P total left hip arthroplasty Current Visit: Yes Status: Acute Code(s): Z96.642 - PRESENCE OF LEFT ARTIFICIAL HIP JOINT SNOMED Code(s): 134702643692 Plan: The clinical findings are discussed with the patient. Will continue current care and physical therapy. Plan possible discharge to home tomorrow.
[2024-01-20] MEDS: RIVAROXABAN 10 MG TAB PO SCH (10:46)
[2024-01-21] MEDS ORDERED: hydroCHLOROthiazide 25 MG TAB PO PRN (05:51)
--- NOTE | 2024-01-21 05:57 | P.PN ---
Subjective Progress Note Date: 01/20/24 HISTORY OF PRESENT ILLNESS: 63-year-old one of my office patient with past medical history of hypertension, history of A-fib with RVR postsurgery in the past, history of hyperlipidemia, history of spinal stenosis and lower back pain postsurgery, chronic history of tinnitus,Mild iron deficiency anemia, and mild hyperglycemia who had lumbar spine surgery back in June 2021 and ended up having right total hip arthroplasty back in October 2022 has been suffering from increased pain and arthritis of the left hip for the last year become much worse lately she has be en limping and restricting her activity quite a bit. She returned to see Dr. York been found to have advanced arthritis of the left hip scheduled for elective total hip arthroplasty, the week before her surgery developed to have quite with URI with bronchitis and was giving an antibiotic along with decongestant felt much better was kept on doxycycline still before coming to the hospital this time. Patient ended up having left total hip arthroplasty and in the recovery room found to have dislocation of the left hip ended up having to go back for revision left total hip arthroplasty with open reduction. She was admitted to the hospital after second surgery successfully still having slight back pain and discomfort but hemodynamically stable. 01/20/2024: Patient had fall on the right side with no major trauma she is still able to stand up and put pressure on the left hip still have slight lightheadedness but blood pressure still running slightly below her blood pressure medication will help at this point. Laboratory value shows an mildly elevated white blood cell 16.1 with hemoglobin down to 9.7 patient be kept on iron. Will repeat chemistry tomorrow as well. The pain is under control with current medication, patient will be doing physical therapy still with the lightheadedness and not feeling well yet patient will be kept in the hospital for at least another day we will adjust her medication before her discharge and probably kept her off the valsartan till she is seen back in the office in the next 3 days. REVIEW OF SYSTEMS: CONSTITUTIONAL: Well-developed no acute respiratory distress. EYES: No icterus sclerae, no conjunctivitis. EARS, NOSE, MOUTH, THROAT, and FACE: No sore throat, lymphadenopathy, carotid bruits or deformity. RESPIRATORY: No SOB cough or wheezes. CARDIOVASCULAR: No CP, Palpitation, PND, Orthopnea, or angina. GASTROINTESTINAL: No Abd pain, Nausea or vomiting, no Diarrhea or constipation, No GI Bleed, no distention or masses. GENITOURINARY: Negative for Hematuria or UTI, no kidney stones. INTEGUMENT/BREAST: Negative for any muscular injury with mild osteoarthritis.. HEMATOLOGIC/LYMPHATIC: Negative for bleed or purpura. Mild anemia MUSCULOSKELTAL: Slight pain and discomfort in the left hip area. NEURLOGICAL: No LOC, Sz or syncope, blurred vision dizziness or abnormality.. BEHAVIORAL/PSYCH: Negative. ENDOCRINE: Negative. PHYSICAL EXAMINATION: General Appearance: Alert, cooperative, no distress, appears stated age. Neck HEENT: Supple, no lymphadenopathy, no thyroid enlargement, no carotid bruits. Lungs: Clear to auscultation without crackles or wheezes no rhonchi, no deformity. Chest Wall: Chest wall normal expansion with deep inspiration no tenderness and no deformity was found on exam, no costochondral pain or discomfort. Heart: Regular rate and rhythm, S1, S2 normal, no murmur, rub or gallop. Back: Symmetric, no curvature, ROM normal, no CVA tenderness. Abdomen: Soft, non-tender, bowel sounds active all four quadrants, no masses, no organomegaly. Extremities: Incision in the left hip anterior approach with slight bruise in the back of her incision site. Pulses: 2+ and symmetric. Skin: Skin color, texture, tugor normal, no rashes or lesions. Neurologic: Alert oriented x3 cranial nerves II through XII intact, no motor deficit, no abnormal balance or gait. ASSESSMENT AND PLAN: _Post left total hip arthroplasty with dislocation and revision arthroplasty altogether within few hours, admit patient to the floor, continue to control pain, resume home meds and continue to watch patient hemodynamic status. Doing well so far had slight bit drop in hemoglobin which expected after the 2 surgery will continue patient on multivitamin and iron at this point continue to watch her hypertension at this point. _History of hypertension: Will stop valsartan and hydrochlorothiazide altogether at this point continue patient on metoprolol succinate only and patient will be seen in the office next 2 to 3 days after discharge if blood pressure is up while she is at home or in the office we will start her back on valsartan otherwise to keep it off for now. _History of A-fib with RVR post her back surgery 2 years ago patient has not had any further A-fib since did not require to be on any anticoagulation but remain on metoprolol with pulse rates under control. Will keep patient off metoprolol despite the blood pressure being little low. _Post fall last night: No injury the patient is doing well inspecting the site of surgery looks good the other side where she had a problem might looks okay. _Chronic constipation: Has been on the stool softener and MiraLAX doing very well. _Recent history of URI with bronchitis. On doxycycline which will resume for few more days. _DVT prophylaxis:Will be mostly on aspirin postsurgery. _GI prophylaxis: Continue patient on Pepcid 20 mg daily. _Pain control management: Continue hydromorphone for the night and continue hydrocodone orally on as-needed basis. Discharge planning: Patient be kept in the hospital for an extra day hopefully will be home tomorrow if she is doing well. Objective - Vital Signs Vital signs: Vital Signs Temp 98.3 F 01/20/24 01:43 Pulse 90 01/20/24 01:43 Resp 15 01/20/24 01:43 BP 105/65 01/20/24 01:43 Pulse Ox 93 L 01/20/24 01:43 FiO2 Intake & Output 01/19/24 01/19/24 01/20/24 06:59 18:59 06:59 Intake Total 2602 Output Total 650 700 Balance 1951 - Weight 82.8 kg Intake: IV 2602 Output: Emesis 700 Estimated Blood Loss 650 Other: # Voids 1 - Labs CBC & Chem 7: 01/20/24 06:03
--- NOTE | 2024-01-21 07:51 | P.PN ---
Subjective Progress Note Date: 01/21/24 HISTORY OF PRESENT ILLNESS: 63-year-old one of my office patient with past medical history of hypertension, history of A-fib with RVR postsurgery in the past, history of hyperlipidemia, history of spinal stenosis and lower back pain postsurgery, chronic history of tinnitus,Mild iron deficiency anemia, and mild hyperglycemia who had lumbar spine surgery back in June 2021 and ended up having right total hip arthroplasty back in October 2022 has been suffering from increased pain and arthritis of the left hip for the last year become much worse lately she has be en limping and restricting her activity quite a bit. She returned to see Dr. York been found to have advanced arthritis of the left hip scheduled for elective total hip arthroplasty, the week before her surgery developed to have quite with URI with bronchitis and was giving an antibiotic along with decongestant felt much better was kept on doxycycline still before coming to the hospital this time. Patient ended up having left total hip arthroplasty and in the recovery room found to have dislocation of the left hip ended up having to go back for revision left total hip arthroplasty with open reduction. She was admitted to the hospital after second surgery successfully still having slight back pain and discomfort but hemodynamically stable. 01/20/2024: Patient had fall on the right side with no major trauma she is still able to stand up and put pressure on the left hip still have slight lightheadedness but blood pressure still running slightly below her blood pressure medication will help at this point. Laboratory value shows an mildly elevated white blood cell 16.1 with hemoglobin down to 9.7 patient be kept on iron. Will repeat chemistry tomorrow as well. The pain is under control with current medication, patient will be doing physical therapy still with the lightheadedness and not feeling well yet patient will be kept in the hospital for at least another day we will adjust her medication before her discharge and probably kept her off the valsartan till she is seen back in the office in the next 3 days. REVIEW OF SYSTEMS: CONSTITUTIONAL: Well-developed no acute respiratory distress. EYES: No icterus sclerae, no conjunctivitis. EARS, NOSE, MOUTH, THROAT, and FACE: No sore throat, lymphadenopathy, carotid bruits or deformity. RESPIRATORY: No SOB cough or wheezes. CARDIOVASCULAR: No CP, Palpitation, PND, Orthopnea, or angina. GASTROINTESTINAL: No Abd pain, Nausea or vomiting, no Diarrhea or constipation, No GI Bleed, no distention or masses. GENITOURINARY: Negative for Hematuria or UTI, no kidney stones. INTEGUMENT/BREAST: Negative for any muscular injury with mild osteoarthritis.. HEMATOLOGIC/LYMPHATIC: Negative for bleed or purpura. Mild anemia MUSCULOSKELTAL: Slight pain and discomfort in the left hip area. NEURLOGICAL: No LOC, Sz or syncope, blurred vision dizziness or abnormality.. BEHAVIORAL/PSYCH: Negative. ENDOCRINE: Negative. PHYSICAL EXAMINATION: General Appearance: Alert, cooperative, no distress, appears stated age. Neck HEENT: Supple, no lymphadenopathy, no thyroid enlargement, no carotid bruits. Lungs: Clear to auscultation without crackles or wheezes no rhonchi, no deformity. Chest Wall: Chest wall normal expansion with deep inspiration no tenderness and no deformity was found on exam, no costochondral pain or discomfort. Heart: Regular rate and rhythm, S1, S2 normal, no murmur, rub or gallop. Back: Symmetric, no curvature, ROM normal, no CVA tenderness. Abdomen: Soft, non-tender, bowel sounds active all four quadrants, no masses, no organomegaly. Extremities: Incision in the left hip anterior approach with slight bruise in the back of her incision site. Pulses: 2+ and symmetric. Skin: Skin color, texture, tugor normal, no rashes or lesions. Neurologic: Alert oriented x3 cranial nerves II through XII intact, no motor deficit, no abnormal balance or gait. ASSESSMENT AND PLAN: _Post left total hip arthroplasty with dislocation and revision arthroplasty altogether within few hours, admit patient to the floor, continue to control pain, resume home meds and continue to watch patient hemodynamic status. Doing well so far had slight bit drop in hemoglobin which expected after the 2 surgery will continue patient on multivitamin and iron at this point continue to watch her hypertension at this point. _History of hypertension: Will stop valsartan and hydrochlorothiazide altogether at this point continue patient on metoprolol succinate only and patient will be seen in the office next 2 to 3 days after discharge if blood pressure is up while she is at home or in the office we will start her back on valsartan otherwise to keep it off for now. _History of A-fib with RVR: continue Metoprolol and add Eliquis 5 mg BID from now on. _Post fall last night: No injury the patient is doing well inspecting the site of surgery looks good the other side where she had a problem might looks okay. _Chronic constipation: Has been on the stool softener and MiraLAX doing very well. _Recent history of URI with bronchitis. On doxycycline which will resume for few more days. _DVT prophylaxis:Will be mostly on aspirin postsurgery. _GI prophylaxis: Continue patient on Pepcid 20 mg daily. _Pain control management: Continue hydromorphone for the night and continue hydrocodone orally on as-needed basis. Discharge planning: D/C home today on anticoagulation for A fib. Objective - Vital Signs Vital signs: Vital Signs Temp 99.4 F 01/21/24 03:30 Pulse 95 01/21/24 03:30 Resp 13 01/21/24 03:30 BP 127/71 01/21/24 03:30 Pulse Ox 93 L 01/21/24 03:30 FiO2 Intake & Output 01/20/24 01/20/24 01/21/24 06:59 18:59 06:59 Intake Total 540 Output Total 700 Balance -700 540 Intake: Oral 540 Output: Emesis 700 Other: # Voids 1 4 - Labs CBC & Chem 7: 01/20/24 06:03 Labs: Abnormal Lab Results - Last 24 Hours (Table) 01/20/24 Range/Units 06:03 WBC 16.12 H (4.50-10.00) X 10*3/uL RBC 3.24 L (4.10-5.20) X 10*6/uL Hgb 9.7 L (12.0-15.0) g/dL Hct 29.2 L (37.2-46.3) % Immature Gran # 0.10 H (0.00-0.04) X 10*3/uL Neutrophils # 13.06 H (1.80-7.70) X 10*3/uL Monocytes # 1.26 H (0.20-1.00) X 10*3/uL Eosinophils # 0.01 L (0.04-0.35) X 10*3/uL
[2024-01-21 07:58] LABS: ALT 14 U/L (4-34); AST 48 U/L (14-36); African American GFR (CKD) 84 (>60 ml/min/1.73 sqM); Albumin 2.9 g/dL (3.5-5.0); Albumin/Globulin Ratio 1.2; Alkaline Phosphatase 55 U/L (38-126); Anion Gap 4 mmol/L; Blood Urea Nitrogen 17 mg/dL (7-17); Calcium 8.7 mg/dL (8.4-10.2); Carbon Dioxide 25 mmol/L (22-30); Chloride 106 mmol/L (98-107); Globulin 2.4 g/dL; Glucose 108 mg/dL (74-99); Non-African American GFR(CKD) 72 (>60 ml/min/1.73 sqM); Potassium 3.8 mmol/L (3.5-5.1); Sodium 135 mmol/L (137-145); Total Bilirubin 0.7 mg/dL (0.2-1.3); Total Protein 5.3 g/dL (6.3-8.2)
--- NOTE | 2024-01-21 08:20 | P.DS ---
Providers Date of admission: 01/20/24 10:20 Expected date of discharge: 01/21/24 Attending physician: Paolo York Consults: 01/19/24 11:27 Consult Physician Routine Consulting Provider: Drew Antunez Reason/Comments: Post-Operative medical management Do you want consulting provider notified?: Yes Primary care physician: Drew Antunez - Discharge Diagnosis(es) (1) Hip dislocation, right Current Visit: Yes Status: Acute (2) Status post revision of total hip replacement Current Visit: Yes Status: Acute (3) Osteoarthritis of left hip Current Visit: Yes Status: Acute (4) S/P total left hip arthroplasty Current Visit: Yes Status: Acute Hospital Course: This is a 63-year-old female with known history of degenerative arthritis of the left hip. The patient presents for evaluation. After discussion and consideration patient elects to proceed with total hip arthroplasty with direct anterior approach. The patient is seen preoperatively by primary care physician and cleared for surgery. Patient is admitted to [facility] on 01/19/2024 for total hip arthroplasty with direct anterior approach. The procedure is performed without complication or sequelae. The patient is doing well postoperatively. Labs and vital signs are stable on day of discharge. On day of discharge patient's hip incision is healing well. There is minimal erythema. There is no drainage noted at this time. There is minimal soft tissue swelling to the hip and thigh. Patient has full foot and ankle motion without difficulty or pain. Neurovascular status to the lower extremity is intact. Patient is discharged to home in good condition. Please see med rec for accurate list of home medications. Patient Condition at Discharge: Good Plan - Discharge Summary Discharge Rx Participant: Yes New Discharge Prescriptions: New Sennosides-Docusate Sodium [Senokot-S] 1 tab PO BID PRN #60 tablet PRN Reason: Constipation Apixaban [Eliquis] 5 mg PO DAILY #60 tablet Famotidine [Pepcid] 20 mg PO DAILY #30 tab Aspirin 325 mg PO BID #60 tab HYDROcodone/APAP 7.5-325MG [[place] 7.5-325] 1 each PO Q6HR PRN #28 tab PRN Reason: Pain Ondansetron [Zofran] 4 mg PO Q6HR PRN #30 tab PRN Reason: Nausea Continue Cholecalciferol [Vitamin D3 (25 Mcg = 1000 Iu)] 50 mcg PO DAILY Mv-Min/Folic/Vit K/Lut/Tsbp582 [Alive Women's 50 Plus Tablet] 1 each PO DAILY Zinc Gluconate [Zinc] 50 mg PO DAILY Metoprolol Succinate (ER) [Toprol XL] 25 mg PO DAILY polyethylene glycoL 3350 [Miralax] 1 packet PO DAILY PRN PRN Reason: Constipation Vitamin B Complex 1 each PO DAILY Ascorbic Acid [Vitamin C] 500 mg PO DAILY Osteo Supplement 1 tab PO DAILY Doxycycline Hyclate 100 mg PO BID Changed Valsartan/Hydrochlorothiazide [Valsartan-Hctz 160-25 mg Tab] 1 each PO HS #0 Discharge Medication List Cholecalciferol [Vitamin D3 (25 Mcg = 1000 Iu)] 50 mcg PO DAILY 05/30/21 [History] Mv-Min/Folic/Vit K/Lut/[id number] [Alive Women's 50 Plus Tablet] 1 each PO DAILY 05/30/21 [History] Vitamin B Complex 1 each PO DAILY 05/30/21 [History] Ascorbic Acid [Vitamin C] 500 mg PO DAILY 10/16/22 [History] Metoprolol Succinate (ER) [Toprol XL] 25 mg PO DAILY 10/16/22 [History] Osteo Supplement 1 tab PO DAILY 10/16/22 [History] Zinc Gluconate [Zinc] 50 mg PO DAILY 10/16/22 [History] Doxycycline Hyclate 100 mg PO BID 01/13/24 [History] polyethylene glycoL 3350 [Miralax] 1 packet PO DAILY PRN 01/13/24 [History] Aspirin 325 mg PO BID #60 tab 01/19/24 [Rx] HYDROcodone/APAP 7.5-325MG [[place] 7.5-325] 1 each PO Q6HR PRN #28 tab 01/19/24 [Rx] Ondansetron [Zofran] 4 mg PO Q6HR PRN #30 tab 01/19/24 [Rx] Sennosides-Docusate Sodium [Senokot-S] 1 tab PO BID PRN #60 tablet 01/19/24 [Rx] Apixaban [Eliquis] 5 mg PO DAILY #60 tablet 01/21/24 [Rx] Famotidine [Pepcid] 20 mg PO DAILY #30 tab 01/21/24 [Rx] Valsartan/Hydrochlorothiazide [Valsartan-Hctz 160-25 mg Tab] 1 each PO HS #0 01/21/24 [Rx] Follow up Appointment(s)/Referral(s): Drew Antunez MD [Primary Care Provider] - [facility] [NON-STAFF] - 1-2 Days ([facility] will call you to schedule your in home physical therapy visits. ) Paolo York DO [Doctor of Osteopathic Medicine] - 2 Weeks (Patient may follow-up with Paris Hardy PA-C or Dr. Paolo York at [facility] in 2-3 weeks following discharge. ) Activity/Diet/Wound Care/Special Instructions: 1. Keep Optifoam dressing over the left hip intact over the next 7 days 2. Patient may shower with dressing intact over the surgical site of the lrft hip 3. Patient may shower without a dressing intact after 7 days his incision site remains clean and dry 4. Weight-bear as tolerated left lower extremity with a walker 5. Take medications as prescribed 6. Any questions or concerns patient may contact [facility] at [phone] Discharge Disposition: HOME WITH HOME HEALTH SERVICES
[2024-01-21 08:28] VITALS: BP 137/74; RESP 17; TEMP 98.9
[2024-01-21 10:41] VITALS: PULSE 91
== END 2024-01-21 11:55 | disposition home health service (06) ==
LOC: OR 07:35 → 4SSUR 11:09 → OR 01-20 10:20
PROVIDERS: ADMIT Orthopaedic Surgery; ATTEND Orthopaedic Surgery
DX: T84.021A Dislocation of internal left hip prosthesis, initial encounter (principal); Y79.2 Prosthetic and other implants, materials and accessory orthopedic devices associated with adverse incidents; M16.12 Unilateral primary osteoarthritis, left hip; M25.752 Osteophyte, left hip; G89.18 Other acute postprocedural pain; R55 Syncope and collapse; J06.9 Acute upper respiratory infection, unspecified; J40 Bronchitis, not specified as acute or chronic; I10 Essential (primary) hypertension; I48.91 Unspecified atrial fibrillation; E78.5 Hyperlipidemia, unspecified; K59.09 Other constipation; Z85.828 Personal history of other malignant neoplasm of skin; Z79.899 Other long term (current) drug therapy; Z79.82 Long term (current) use of aspirin; Z79.01 Long term (current) use of anticoagulants
CPT/HCPCS: 27134; 27299; 96365; 96366; 96375; 97116; 97161; 64447; 80053; 85025; 73501; G0378 ×2; C1776; J2250; J0330; J1100; J0690 ×3; J2405; J2001; J3010; J1170 ×2; J2795; J2704

== ENCOUNTER → 2024-07-06 | Outpatient (CLI) | payer BC ==
--- NOTE | 2024-07-06 10:17 | BD ---
EXAMINATION TYPE: Axial Bone Density DATE OF EXAM: 07/06/2024 CLINICAL HISTORY: 63 years old Female. ICD-10 CODE: M81.0 AGE-RELATED OSTEOPOROSIS Height: 64.5" Weight: 168lbs FRAX RISK QUESTIONS: Alcohol (3 or more units per day): No Family History (Parent hip fracture): No to the best of patients knowledge Glucocorticoids (More than 3mos): No (Ex: prednisone, prednisolone, methylprednisolone, dexamethasone, and hydrocortisone). History of Fracture in Adulthood: No Secondary Osteoporosis: 1. Type 1 Diabetes: No 2. Hyperthyroidism: No 3. Menopause before 45: No 4. Malnutrition: No 5. Chronic liver disease: No Rheumatoid Arthritis: No Current Tobacco Use: No RISK FACTORS HISTORY OF: Hip Fracture (Right/Left): Bilateral hip replacement When: Right hip 2022, left hip 2023 Spine Fracture: No History of Wrist Fracture: No Surgery to Spine/Hip(right/left)/Wrist (right/left): Yes, lumbar surgery 2020 Only wrists were scanned due to patient's pervious surgeries. MEDICATIONS: Thyroid Medications: No Osteoporosis Medications: No EXAM MEASUREMENTS: Bone mineral densitometry was performed using the [place] REO System. Bone mineral density about the R Wrist (g/cm2): 0.629 T Score values are as follows: -----Dist. R+U: -0.3 -----Prox. R+U: -0.6 -----Radius total: -0.7 Z Score values are as follows: -----Dist. R+U: 1.2 -----Prox. R+U: 0.9 -----Radius total: 0.7 Bone mineral density about the L Wrist (g/cm2): 0.634 T Score values are as follows: -----Dist. R+U: 0.1 -----Prox. R+U: -0.4 -----Radius total: -0.7 Z Score values are as follows: -----Dist. R+U: 1.6 -----Prox. R+U: 1.0 -----Radius total: 0.8 FRAX%s: N/A IMPRESSION: Normal (Values between +1 and -1 indicate normal bone mass). Consider repeating this study in 5 year s or sooner if there is some new clinical indication. NOTE: T-SCORE=SD OF THE YOUNG ADULT MEAN. [facility], , 07/06/2024 10:15 AM
--- NOTE | 2024-07-06 12:34 | MM ---
Reason for Exam: Screening (asymptomatic). Last mammogram was performed 1 year(s) and 1 month(s) ago. Patient History: Menarche at age 13. First Full-Term at age 23. Hysterectomy at age 52. Postmenopausal. Hormonal Contraceptives for 6 years from age 16 until age 22. 12/10/2006, Benign Cyst Aspiration on the right side. 12/10/2006, Benign Cyst Aspiration on the right side. Risk Values: Val 5 year model risk: 1.7%. NCI Lifetime model risk: 6.3%. Prior Study Comparison: 07/23/2020 Bilateral Screening Mammogram, [facility]. 01/28/2022 Bilateral Screening Mammogram, [facility]. 06/30/2023 Bilateral MG 3D screening mammo w/cad, [facility]. Tissue Density: The breasts are extremely dense, which lowers the sensitivity of mammography. Findings: Analyzed By CAD. There is no suspicious group of microcalcifications or new suspicious mass in either breast. Overall Assessment: Benign, BI-RAD 2 Management: Screening Mammogram of both breasts in 1 year. . Patient should continue monthly self-breast exams. A clinical breast exam by your physician is recommended on an annual basis. This exam should not preclude additional follow-up of suspicious palpable abnormalities. Note on Val scores and lifetime risk: 1. A Val score greater than 3% is considered moderate risk. If this is the case, consider specialist referral to assess eligibility for a risk reducing agent. 2. If overall lifetime risk for the development of breast cancer is 20% or higher, the patient may qualify for future screening with alternating mammogram and breast MRI. [facility], , 07/06/2024 12:31 PM. Electronically signed and approved by: Pavan Mahoney M.D. [facility]
== END | disposition home or self-care (01) ==
LOC: RADMAMWWP 06:49
PROVIDERS: ATTEND Internal Medicine Geriatric Medicine
DX: M81.0 Age-related osteoporosis without current pathological fracture
CPT/HCPCS: 77063; 77067; 77080